=== PATIENT | female | born 2000 | race American Indian/Alaskan Native ===

== ENCOUNTER 2020-04-27 19:53 | Emergency (ER) | payer MEDICAID ==
[2020-04-27 22:30] VITALS: BP 117/71
[2020-04-27 23:13] LABS: Basophils % (Auto) 0.2 % (0.0-1.8); Eosinophils # (Auto) 0.1 K/mm3 (0.0-0.4); Eosinophils % (Auto) 0.8 % (0.0-4.3); Hematocrit 38.2 % (30.3-42.9); Hemoglobin 12.7 gm/dl (10.1-14.3); Lymphocytes # (Auto) 4.5 K/mm3 (1.2-5.4); Lymphocytes % (Auto) 39.6 % (13.4-35.0); Mean Corpuscular HGB Conc 33 % (30-34); Mean Corpuscular Volume 81 fl (79-97); Monocytes # (Auto) 0.6 K/mm3 (0.0-0.8); Monocytes % (Auto) 5.6 % (0.0-7.3); Platelet Count 309 K/mm3 (140-440); Red Cell Distribution Width 14.8 % (13.2-15.2)
[2020-04-27 23:30] LABS: Bacteria,Urine 1+ /HPF (Negative); Bilirubin,Urine NEG (Negative); Blood,Urine NEG (Negative); Color,Urine Yellow (Yellow); Hyaline Casts,Urine 2 /LPF; Mucus,Urine FEW /HPF; Protein,Urine <15 mg/dL mg/dL (Negative); Urobilinogen,Urine < 2.0 mg/dL (<2.0)
[2020-04-27 23:34] LABS: Alanine Aminotransferase 31 units/L (7-56); Albumin 4.3 g/dL (3.9-5); Blood Urea Nitrogen 11 mg/dL (7-17); Calcium 9.6 mg/dL (8.4-10.2); Hemolysis Index 3
[2020-04-27 23:57] LABS: BUN/Creatinine Ratio 16
== END 2020-04-28 07:58 | disposition left against medical advice (07) ==
LOC: ED 19:53
DX: R55 Syncope and collapse (principal); Z53.21 Procedure and treatment not carried out due to patient leaving prior to being seen by health care provider
CPT/HCPCS: 36415; 80053; 81001; 82962; 84703; 85025; 93005

== ENCOUNTER 2020-06-17 18:27 | Emergency (ER) | payer MEDICAID | END 2020-06-17 19:00 | disposition left against medical advice (07) | LOC: ED 18:27 | DX: R11.2 Nausea with vomiting, unspecified (principal); Z53.21 Procedure and treatment not carried out due to patient leaving prior to being seen by health care provider ==

== ENCOUNTER 2020-06-30 12:28 | Emergency (ER) | payer MEDICAID ==
--- NOTE | 2020-06-30 12:55 | Emergency Department Report ---
Blank Doc - Documentation Documentation: 19-year-old female that presents with worsening abdominal pain with n/v. Stated seen her PCP a few weeks ago and referred to GI but was not able to see one yet. 1- This initial assessment/diagnostic orders/clinical plan/ treatment(s) is/are subject to change based on pt's health status, clinical progression and re- assessment by fellow clinical providers in the ED. Further treatment and workup at subsequent clinical provers discretion. Patient/guardians urged not to elope from ED as their condition may be serious if not clinically assessed and managed. 2-labs 3-UA
[2020-06-30 14:06] LABS: Bilirubin,Urine NEG (Negative); Blood,Urine NEG (Negative); Color,Urine Yellow (Yellow); Mucus,Urine FEW /HPF; Protein,Urine <15 mg/dL mg/dL (Negative)
[2020-06-30 14:13] LABS: Basophils % (Auto) 0.3 % (0.0-1.8); Eosinophils % (Auto) 0.5 % (0.0-4.3); Hematocrit 41.9 % (30.3-42.9); Hemoglobin 13.8 gm/dl (10.1-14.3); Lymphocytes # (Auto) 2.9 K/mm3 (1.2-5.4); Lymphocytes % (Auto) 43.2 % (13.4-35.0); Mean Corpuscular HGB Conc 33 % (30-34); Mean Corpuscular Volume 83 fl (79-97); Monocytes # (Auto) 0.3 K/mm3 (0.0-0.8); Platelet Count 274 K/mm3 (140-440); Red Blood Count 5.02 M/mm3 (3.65-5.03); Red Cell Distribution Width 15.4 % (13.2-15.2)
[2020-06-30 14:38] LABS: Alanine Aminotransferase 25 units/L (7-56); Albumin 4.3 g/dL (3.9-5); Blood Urea Nitrogen 8 mg/dL (7-17); Calcium 9.4 mg/dL (8.4-10.2); Hemolysis Index 6
[2020-06-30 14:40] LABS: BUN/Creatinine Ratio 11
[2020-06-30] MEDS ORDERED: ONDANSETRON 4 MG/2 ML INJ IV ONE (16:47)
[2020-06-30] MEDS ORDERED: SODIUM CHLORIDE 0.9% 1000 ML 1,000 ML IV ONE (16:47)
--- NOTE | 2020-06-30 16:58 | Emergency Department Report ---
ED Abdominal Pain HPI - General Chief Complaint: Abdominal Pain Stated Complaint: ABD PAIN/VOMITING PUI?: No Time Seen by Provider: 06/30/20 16:28 Source: patient Mode of arrival: Ambulatory Limitations: No Limitations - History of Present Illness Initial Comments: Patient is a 19-year-old female that presents emergency room with complaint with abdominal pain and nausea vomiting. Patient states her symptoms been going on for 2 weeks. Patient states the symptoms are worsening. Patient states she saw her PCP yesterday and they referred her to gastroenterology. Patient states the pain is a stabbing pain. Patient states that she has a control in her left upper extremity and she has had a period for 6 weeks. Patient states the pain is a 10 out of 10. Patient denies recent travel. Patient denies recent international travel. Patient denies exposure to the novel coronavirus. Patient denies sick contacts. Patient denies fever and chills. Patient denies cough. Patient denies diarrhea. Patient denies coming in contact with anybody with symptoms of the novel coronavirus. MD Complaint: abdominal pain -: Sudden Location: RLQ, epigastric Radiation: none Migration to: no migration Severity: severe Severity scale (0 -10): 10 Quality: stabbing, sharp Consistency: constant Improves With: rest Worsens With: vomiting, movement Associated Symptoms: denies other symptoms, nausea, vomiting, constipation. de nies: diarrhea, fever, chills, dysuria, hematemesis, hematochezia, melena, hematuria, anorexia, syncope - Related Data LMP (females 10-50): other ( control implant in E. lmp 6 months.) Previous Rx's Medication Instructions Recorded Last Taken Type Hyoscyamine Subl [Levsin Sl 0.125 0.125 mg SL Q6HR PRN #7 tab 06/30/20 Unknown Rx TAB] Ondansetron [Zofran ODT TAB] 4 mg PO Q6HR PRN #20 tab.rapdis 06/30/20 Unknown Rx Allergies Allergy/AdvReac Type Severity Reaction Status Date / Time No Known Allergies Allergy Verified 12/11/19 18:32 ED Review of Systems ROS: Stated complaint: ABD PAIN/VOMITING Other details as noted in HPI Constitutional: denies: chills, fever Eyes: denies: eye pain, eye discharge, vision change ENT: denies: ear pain, throat pain Respiratory: denies: cough, shortness of breath, wheezing Cardiovascular: denies: chest pain, palpitations Endocrine: no symptoms reported Gastrointestinal: abdominal pain, nausea, vomiting, constipation. denies: diarrhea Genitourinary: denies: urgency, dysuria, discharge Musculoskeletal: denies: back pain, joint swelling, arthralgia Skin: denies: rash, lesions Neurological: denies: headache, weakness, paresthesias Psychiatric: denies: anxiety, depression Hematological/Lymphatic: denies: easy bleeding, easy bruising ED Past Medical Hx - Past Medical History Previous Medical History?: Yes Hx Diabetes: Yes - Social History Smoking Status: Current Every Day Smoker Substance Use Type: None - Medications Home Medications: Home Medications Medication Instructions Recorded Confirmed Last Taken Type Hyoscyamine Subl [Levsin Sl 0.125 0.125 mg SL Q6HR PRN #7 tab 06/30/20 Unknown Rx TAB] Ondansetron [Zofran ODT TAB] 4 mg PO Q6HR PRN #20 tab.rapdis 06/30/20 Unknown Rx ED Physical Exam - General Limitations: No Limitations General appearance: alert, in no apparent distress - Head Head exam: Present: atraumatic, normocephalic - Eye Eye exam: Present: normal appearance - ENT ENT exam: Present: mucous membranes moist - Neck Neck exam: Present: normal inspection - Respiratory Respiratory exam: Present: normal lung sounds bilaterally. Absent: respiratory distress - Cardiovascular Cardiovascular Exam: Present: regular rate, normal rhythm. Absent: systolic murmur, diastolic murmur, rubs, gallop - GI/Abdominal GI/Abdominal exam: Present: soft, tenderness (epigastric ttp and rlq ttp.), normal bowel sounds. Absent: distended, guarding - Rectal Rectal exam: Present: deferred - Extremities Exam Extremities exam: Present: normal inspection - Back Exam Back exam: Present: normal inspection - Neurological Exam Neurological exam: Present: alert, oriented X3 - Psychiatric Psychiatric exam: Present: normal affect, normal mood - Skin Skin exam: Present: warm, dry, intact, normal color. Absent: rash ED Course Vital Signs 06/30/20 06/30/20 06/30/20 12:36 12:43 18:13 Temperature 98.4 F Pulse Rate 99 H 80 Respiratory 18 Rate Blood Pressure 126/70 Blood Pressure 119/71 [Left] O2 Sat by Pulse 95 100 Oximetry - Reevaluation(s) Reevaluation #1: I discussed results of CT scan. Patient states he is feeling better after medications. Patient will be given a p.o. challenge. 06/30/20 18:45 Reevaluation #2: Patient tolerated p.o. challenge. Patient states she is feeling much better. Patient tolerating solid food and liquids. I discussed all results and clinical findings with patient. I discussed plan of care with patient. Patient agrees with plan of care. Patient is stable for discharge. Patient will be discharged home. Patient given discharge instructions. Patient voiced understanding of discharge instructions. 06/30/20 19:10 ED Medical Decision Making - Lab Data Result diagrams: 06/30/20 13:50 06/30/20 13:50 - Radiology Data CT OF THE ABDOMEN AND PELVIS WITH INTRAVENOUS CONTRAST INDICATION / CLINICAL INFORMATION: Abdominal and right lower quadrant pain. TECHNIQUE: The patient received 100 cc Omnipaque [address] scans at this location are performed using CT dose reduction for ALARA by means of automated exposure control. COMPARISON: None available. FINDINGS: ABDOMEN: The liver, spleen, gallbladder, bile ducts, pancreas, adrenal glands, kidneys and bowel demonstrate no significant abnormality. No adenopathy is seen. The lung bases are clear. PELVIS: The distal ureters and urinary bladder are normal. The uterus and adnexal regions are unremarkable. No abnormal mass or fluid collection is seen. A normal appendix is present and there is no evidence of diverticulitis. I do not identify a hernia. No acute osseous abnormality is seen. IMPRESSION: No acute abnormality is identified. There is no CT evidence of acute appendicitis. - Medical Decision Making Patient is a 19-year-old female that presents emergency room for abdominal pain and nausea and vomiting. Patient also complained of constipation at times. Patient on exam had right lower quadrant tenderness to palpation. Patient had l abs which were essentially unremarkable except for elevated specific gravity consistent with dehydration. Patient given fluids and Zofran. Patient responded well to treatment. Patient tolerated p.o. challenge. Patient had a CT scan since the patient had right lower quadrant abdominal pain and nausea and vomiting. Patient CT scan was negative for acute findings. Patient stable for discharge. Patient discharged home. - Differential Diagnosis Gastroenteritis, gastroparesis, appendicitis, dehydration, abdominal pain Critical care attestation.: If time is entered above; I have spent that time in minutes in the direct care of this critically ill patient, excluding procedure time. ED Disposition Clinical Impression: Gastroenteritis Abdominal pain Qualifiers: Abdominal location: right lower quadrant Qualified Code(s): R10.31 - Right lower quadrant pain Constipation Qualifiers: Constipation type: unspecified constipation type Qualified Code(s): K59.00 - Constipation, unspecified Nausea & vomiting Qualifiers: Vomiting type: unspecified Vomiting Intractability: non-intractable Qualified Code(s): R11.2 - Nausea with vomiting, unspecified Disposition: TO HOME OR SELFCARE Is pt being admited?: No Does the pt Need Aspirin: No Condition: Stable Instructions: Abdominal Pain (ED), Constipation, Adult, [id number], Abdominal Pain, Adult, Viral Gastroenteritis, Adult, Nausea and Vomiting, Adult Additional Instructions: Patient to follow-up with primary care in 2 to 3 days. Patient to follow-up with gastroenterology in 2 to 3 days. Patient to rest. Patient to increase wa ter. Patient to eat a brat diet. Patient to take Tylenol or ibuprofen as needed for pain. Patient to take meds as directed. Patient to return to the ER if condition worsens, changes or new symptoms arise. Prescriptions: Hyoscyamine Subl [Levsin Sl 0.125 TAB] 0.125 mg SL Q6HR PRN #7 tab PRN Reason: abdominal cramping/diarrhea Ondansetron [Zofran ODT TAB] 4 mg PO Q6HR PRN #20 tab.rapdis PRN Reason: Nausea And Vomiting Referrals: PRIMARY CARE, [Primary Care Provider] - 2-3 Days ELENI MORA MD [Staff Physician] - 2-3 Days Time of Disposition: 19:16
--- NOTE | 2020-06-30 17:56 | Cat Scan Report ---
CT OF THE ABDOMEN AND PELVIS WITH INTRAVENOUS CONTRAST INDICATION / CLINICAL INFORMATION: Abdominal and right lower quadrant pain. TECHNIQUE: The patient received 100 cc Omnipaque [address] scans at this location are performed using CT dose reduction for ALARA by means of automated exposure control. COMPARISON: None available. FINDINGS: ABDOMEN: The liver, spleen, gallbladder, bile ducts, pancreas, adrenal glands, kidneys and bowel demo nstrate no significant abnormality. No adenopathy is seen. The lung bases are clear. PELVIS: The distal ureters and urinary bladder are normal. The uterus and adnexal regions are unremar kable. No abnormal mass or fluid collection is seen. A normal appendix is present and there is no iram dence of diverticulitis. I do not identify a hernia. No acute osseous abnormality is seen. IMPRESSION: No acute abnormality is identified. There is no CT evidence of acute appendicitis. Signer Name: Ebenezer Gamboa MD Signed: 06/30/2020 5:52 PM Workstation Name: [id number]
[2020-06-30 18:13] VITALS: BP 119/71
== END 2020-06-30 19:24 | disposition home or self-care (01) ==
LOC: ED 12:28
DX: K52.9 Noninfective gastroenteritis and colitis, unspecified (principal); K59.00 Constipation, unspecified; R11.2 Nausea with vomiting, unspecified; R10.31 Right lower quadrant pain; E11.9 Type 2 diabetes mellitus without complications; F17.200 Nicotine dependence, unspecified, uncomplicated; Z79.899 Other long term (current) drug therapy
CPT/HCPCS: 36415; 74177; 80053; 81001; 82962; 83690; 84703; 85025; 96361; 96374; 99284; J2405; J7030; Q9967

== ENCOUNTER 2020-08-23 19:04 | Emergency (ER) | payer MEDICAID ==
[2020-08-23 21:31] VITALS: BP 145/84
[2020-08-23] MEDS ORDERED: ONDANSETRON 4 MG ODT TAB PO ONE (23:57)
[2020-08-23] MEDS ORDERED: ACETAMINOPHEN 500 MG TAB PO ONE (23:58)
[2020-08-23] MEDS ORDERED: MECLIZINE 25 MG TAB PO ONE (23:58)
[2020-08-24 00:40] LABS: Hematocrit 40.6 % (30.3-42.9); Hemoglobin 13.4 gm/dl (10.1-14.3); Mean Corpuscular HGB Conc 33 % (30-34); Mean Corpuscular Volume 85 fl (79-97); Platelet Count 316 K/mm3 (140-440); Red Cell Distribution Width 15.1 % (13.2-15.2)
[2020-08-24 00:42] LABS: Lymphocytes % (Auto) 41.2 % (13.4-35.0)
[2020-08-24 00:43] LABS: Basophils % (Auto) 0.2 % (0.0-1.8); Eosinophils # (Auto) 0.1 K/mm3 (0.0-0.4); Eosinophils % (Auto) 0.6 % (0.0-4.3); Lymphocytes # (Auto) 4.7 K/mm3 (1.2-5.4); Monocytes # (Auto) 0.8 K/mm3 (0.0-0.8); Monocytes % (Auto) 6.7 % (0.0-7.3)
[2020-08-24 02:11] LABS: Alanine Aminotransferase 21 units/L (7-56); Albumin 4.6 g/dL (3.9-5); BUN/Creatinine Ratio 8; Blood Urea Nitrogen 8 mg/dL (7-17); Calcium 10.2 mg/dL (8.4-10.2); Hemolysis Index 2
--- NOTE | 2020-08-24 02:41 | XRay Report ---
CHEST 1 VIEW 08/24/2020 1:35 AM INDICATION / CLINICAL INFORMATION: Headaches, weakness, lightheadedness and near syncope. COMPARISON: None available. FINDINGS: SUPPORT DEVICES: None. HEART / MEDIASTINUM: The heart size and pulmonary vasculature are normal. The aorta is normal in nico alistair. LUNGS / PLEURA: No significant pulmonary or pleural abnormality. No pneumothorax. ADDITIONAL FINDINGS: No significant additional findings. IMPRESSION: No acute findings. Signer Name: Ebenezer Gamboa MD Signed: 08/24/2020 2:37 AM Workstation Name: [id number]
[2020-08-24 05:33] LABS: Bilirubin,Urine NEG (Negative); Blood,Urine NEG (Negative); Color,Urine Amber (Yellow); Mucus,Urine 3+ /HPF; Urobilinogen,Urine < 2.0 mg/dL (<2.0)
--- NOTE | 2020-08-24 06:01 | Emergency Department Report ---
ED General Adult HPI - General Chief complaint: Weakness Stated complaint: WEAKNESS/HEADACHE Source: patient, EMS Mode of arrival: Ambulatory Limitations: No Limitations - History of Present Illness Initial comments: Patient is a nulliparous 19-year-old -[place] female with past medical history of bipolar disorder, paranoid schizophrenia and fti-eskayaa-zuxuarzqj diabetes who presents to the ED with complaint of acute onset persistent frontal headache with pressure, lightheadedness and generalized weakness for the last 2 days. Patient states that the symptoms have worsened in the last 12 hours. Patient states that she has been taking ofyj-dbp-xdsphmj medications with no relief. Patient denies nausea and vomiting, diarrhea, dizziness, syncope, chest pain or shortness of breath, sore throat, abdominal pain, dysuria, urinary frequency and urgency, fever and chills or cough. MD Complaint: Headache, lightheadedness generalized weakness -: Sudden, days(s) (2) Location: head Radiation: non-radiation Severity scale (0 -10): 3 Quality: aching, sharp Consistency: constant Improves with: none Worsens with: none Associated Symptoms: denies other symptoms, headaches, weakness. denies: confusion, chest pain, cough, diaphoresis, fever/chills, loss of appetite, malaise, nausea/vomiting, rash, seizure, shortness of breath, syncope Treatments Prior to Arrival: none - Related Data Previous Rx's Medication Instructions Recorded Last Taken Type Hyoscyamine Subl [Levsin Sl 0.125 0.125 mg SL Q6HR PRN #7 tab 06/30/20 Unknown Rx TAB] Ondansetron [Zofran ODT TAB] 4 mg PO Q6HR PRN #20 tab.rapdis 06/30/20 Unknown Rx Amoxicillin [Trimox CAP] 500 mg PO Q8H #30 capsule 08/24/20 Unknown Rx Ibuprofen [Motrin] 600 mg PO Q8H PRN #24 tablet 08/24/20 Unknown Rx Ondansetron [Zofran Odt] 4 mg PO Q8HR PRN #15 tab.rapdis 08/24/20 Unknown Rx Allergies Allergy/AdvReac Type Severity Reaction Status Date / Time No Known Allergies Allergy Verified 12/11/19 18:32 ED Review of Systems ROS: Stated complaint: WEAKNESS/HEADACHE Other details as noted in HPI Constitutional: denies: chills, fever Eyes: denies: eye pain, eye discharge, vision change ENT: other (Frontal sinus pressure). denies: ear pain, throat pain Respiratory: denies: cough, shortness of breath, wheezing Cardiovascular: denies: chest pain, palpitations Endocrine: no symptoms reported Gastrointestinal: denies: abdominal pain, nausea, diarrhea Genitourinary: denies: urgency, dysuria, discharge Musculoskeletal: denies: back pain, joint swelling, arthralgia Skin: denies: rash, lesions Neurological: headache. denies: weakness, paresthesias Psychiatric: denies: anxiety, depression Hematological/Lymphatic: denies: easy bleeding, easy bruising ED Past Medical Hx - Past Medical History Previous Medical History?: Yes Hx Diabetes: Yes Hx Psychiatric Treatment: Yes (bipolar,schizophrenia) - Social History Smoking Status: Never Smoker Substance Use Type: None - Medications Home Medications: Home Medications Medication Instructions Recorded Confirmed Last Taken Type Hyoscyamine Subl [Levsin Sl 0.125 0.125 mg SL Q6HR PRN #7 tab 06/30/20 Unknown Rx TAB] Ondansetron [Zofran ODT TAB] 4 mg PO Q6HR PRN #20 tab.rapdis 06/30/20 Unknown Rx Amoxicillin [Trimox CAP] 500 mg PO Q8H #30 capsule 08/24/20 Unknown Rx Ibuprofen [Motrin] 600 mg PO Q8H PRN #24 tablet 08/24/20 Unknown Rx Ondansetron [Zofran Odt] 4 mg PO Q8HR PRN #15 tab.rapdis 08/24/20 Unknown Rx ED Physical Exam - General Limitations: No Limitations General appearance: alert, in no apparent distress - Head Head exam: Present: atraumatic, normocephalic, normal inspection - Eye Eye exam: Present: normal appearance, PERRL, EOMI Pupils: Present: normal accommodation - ENT ENT exam: Present: normal exam, normal orophraynx, mucous membranes moist, TM's normal bilaterally, normal external ear exam, other (Palpable frontal sinus tenderness) - Neck Neck exam: Present: normal inspection, full ROM - Respiratory Respiratory exam: Present: normal lung sounds bilaterally. Absent: respiratory distress, wheezes, rales, rhonchi, chest wall tenderness, accessory muscle use, decreased breath sounds, other - Cardiovascular Cardiovascular Exam: Present: regular rate, normal rhythm, normal heart sounds. Absent: systolic murmur, diastolic murmur, rubs, gallop - GI/Abdominal GI/Abdominal exam: Present: soft, normal bowel sounds. Absent: tenderness, guarding, rebound, hyperactive bowel sounds, hypoactive bowel sounds - Extremities Exam Extremities exam: Present: normal inspection, full ROM, normal capillary refill - Back Exam Back exam: Present: normal inspection, full ROM. Absent: tenderness, CVA tenderness (R), CVA tenderness (L), muscle spasm, paraspinal tenderness - Neurological Exam Neurological exam: Present: alert, oriented X3, CN II-XII intact, normal gait, reflexes normal - Psychiatric Psychiatric exam: Present: normal affect, normal mood, anxious - Skin Skin exam: Present: warm, dry, intact, normal color. Absent: rash ED Course Vital Signs 08/23/20 21:26 Temperature 98.9 F Pulse Rate 97 H Respiratory 18 Rate Blood Pressure 145/84 O2 Sat by Pulse 98 Oximetry ED Medical Decision Making - Lab Data Result diagrams: 08/24/20 00:05 08/24/20 00:05 - Radiology Data Radiology results: report reviewed, image reviewed [facility] [address] [place] [address] XRay Report Signed Patient: SONIA COREAS MR#: [id number] 6 : 2000 Acct:[id number] Age/Sex: 19 / F ADM Date: 08/23/20 Loc: ED Attending Dr: Ordering Physician: SCAR TOWNSEND Date of Service: 08/24/20 Procedure(s): XR chest 1V ap Accession Number(s): [id number] cc: SCAR TOWNSEND Fluoro Time In Minutes: CHEST 1 VIEW 08/24/2020 1:35 AM INDICATION / CLINICAL INFORMATION: Headaches, weakness, lightheadedness and near syncope. COMPARISON: None available. FINDINGS: SUPPORT DEVICES: None. HEART / MEDIASTINUM: The heart size and pulmonary vasculature are normal. The aorta is normal in caliber. LUNGS / PLEURA: No significant pulmonary or pleural abnormality. No pneumothorax. ADDITIONAL FINDINGS: No significant additional findings. IMPRESSION: No acute findings. Signer Name: Ebenezer Gamboa MD Signed: 08/24/2020 2:37 AM Workstation Name: [id number] Transcribed By: RT Dictated By: Ebenezer Gamboa MD Electronically Authenticated By: Ebenezer Gamboa MD Signed Date/Time: 08/24/20236 DD/ 5 TD/TT: Print Cancel - Medical Decision Making This is a nulliparous 19-year-old -[place] female with past medical hist ory of bipolar disorder, paranoid schizophrenia and rgk-uehxktm-doomahkwk diabetes who presents to the ED with complaint of acute onset persistent frontal headache with pressure, lightheadedness and generalized weakness for the last 2 days. Patient states that the symptoms have worsened in the last 12 hours. Patient states that she has been taking asry-zur-knrvtkb medications with no relief. In the ED, patient is alert and oriented x3 and is not in any distress with stable vital signs. In the ED, patient was treated for pain and also given antiemetics. Chest x-ray showed no acute cardiopulmonary abnormalities or pneumonitis. Lab test results were reviewed and are all nonactionable. Based on the history and physical exam findings, the patient symptoms are likely due to frontal sinusitis. Patient was therefore discharged home on medications and advised to follow-up with her primary care physician in 7 to 10 days for reevaluation or return to the ED immediately if symptoms get worse. - Differential Diagnosis Sinus headache, sinusitis, URI, viral syndrome, dehydration Critical care attestation.: If time is entered above; I have spent that time in minutes in the direct care of this critically ill patient, excluding procedure time. ED Disposition Clinical Impression: Acute non-recurrent frontal sinusitis, Sinus headache Disposition: - TO HOME OR SELFCARE Is pt being admited?: No Does the pt Need Aspirin: No Condition: Stable Instructions: Sinusitis, Adult, Spjf-zf-Yeqo, Upper Respiratory Infection, Adult, Cowm-wy-Olha, Sinus Headache, Nlpd-nl-Retf Additional Instructions: All lab test results were reviewed and are all nonactionable. Chest x-ray showed no acute cardiopulmonary abnormalities or pneumonitis. Therefore take medications with food drink plenty of fluids and follow-up with your primary care physician in 5 to 7 days for reevaluation. Return to the ED immediately if symptoms get worse. Prescriptions: Ibuprofen [Motrin] 600 mg PO Q8H PRN #24 tablet PRN Reason: Pain Amoxicillin [Trimox CAP] 500 mg PO Q8H #30 capsule Ondansetron [Zofran Odt] 4 mg PO Q8HR PRN #15 tab.rapdis PRN Reason: Nausea Referrals: [facility] [Provider Group] - 7-10 days Time of Disposition: 06:02 Print Language: EMIRATI
== END 2020-08-24 06:10 | disposition home or self-care (01) ==
LOC: ED 19:04
DX: J01.10 Acute frontal sinusitis, unspecified (principal); R51.9 Headache, unspecified; E11.9 Type 2 diabetes mellitus without complications; F20.9 Schizophrenia, unspecified; F31.9 Bipolar disorder, unspecified; Z79.1 Long term (current) use of non-steroidal anti-inflammatories (NSAID); Z79.2 Long term (current) use of antibiotics; Z79.899 Other long term (current) drug therapy
CPT/HCPCS: 36415; 71045; 80053; 81001; 82962; 84703; 85025; 87086; Q0162

== ENCOUNTER 2020-09-01 20:47 | Inpatient (IN) | payer MEDICAID ==
[2020-09-01 21:34] LABS: Basophils % (Auto) 0.3 % (0.0-1.8); Eosinophils # (Auto) 0.1 K/mm3 (0.0-0.4); Eosinophils % (Auto) 0.6 % (0.0-4.3); Hematocrit 37.7 % (30.3-42.9); Hemoglobin 12.5 gm/dl (10.1-14.3); Lymphocytes # (Auto) 3.2 K/mm3 (1.2-5.4); Lymphocytes % (Auto) 34.2 % (13.4-35.0); Mean Corpuscular HGB Conc 33 % (30-34); Mean Corpuscular Volume 84 fl (79-97); Monocytes # (Auto) 0.5 K/mm3 (0.0-0.8); Monocytes % (Auto) 5.4 % (0.0-7.3); Platelet Count 261 K/mm3 (140-440); Red Blood Count 4.52 M/mm3 (3.65-5.03); Red Cell Distribution Width 14.7 % (13.2-15.2)
[2020-09-01 21:59] LABS: Alanine Aminotransferase 22 units/L (7-56); Albumin 3.8 g/dL (3.9-5); BUN/Creatinine Ratio 14; Blood Urea Nitrogen 11 mg/dL (7-17); Calcium 8.9 mg/dL (8.4-10.2); Hemolysis Index 5
[2020-09-01 23:01] LABS: INR 1.19 (0.87-1.13)
[2020-09-01 23:02] LABS: Partial Thromboplastin Time 30.3 Sec. (24.2-36.6)
--- NOTE | 2020-09-01 23:05 | Emergency Department Report ---
ED General Adult HPI - General Chief complaint: Overdose Stated complaint: POSS OD Time Seen by Provider: 09/01/20 21:01 Source: patient, EMS Mode of arrival: Stretcher Limitations: No Limitations - History of Present Illness Initial comments: The patient presents to the emergency department via EMS after taking 3 handfuls of Tylenol. Patient states able to 500 mg tablets. The Tylenol was taken around 8 PM and was witnessed by her roommate. Patient states that she has a history of schizophrenia with suicide attempts in the past with the last one being 2 weeks ago. She says she has a self-harm who likes to cut her wrists. She states today voices were telling her to hurt himself and others by slicing her throat. She states this overwhelmed her so she ran to the home to grab a sharp item to slice her self but she cannot find it so instead she took the Tylenol. -: Sudden Severity scale (0 -10): 0 Consistency: constant Improves with: none Worsens with: none Associated Symptoms: denies other symptoms Treatments Prior to Arrival: none - Related Data Previous Rx's Medication Instructions Recorded Last Taken Type Hyoscyamine Subl [Levsin Sl 0.125 0.125 mg SL Q6HR PRN #7 tab 06/30/20 Unknown Rx TAB] Ondansetron [Zofran ODT TAB] 4 mg PO Q6HR PRN #20 tab.rapdis 06/30/20 Unknown Rx Amoxicillin [Trimox CAP] 500 mg PO Q8H #30 capsule 08/24/20 Unknown Rx Ibuprofen [Motrin] 600 mg PO Q8H PRN #24 tablet 08/24/20 Unknown Rx Ondansetron [Zofran Odt] 4 mg PO Q8HR PRN #15 tab.rapdis 08/24/20 Unknown Rx Allergies Allergy/AdvReac Type Severity Reaction Status Date / Time No Known Allergies Allergy Verified 12/11/19 18:32 ED Review of Systems ROS: Stated complaint: POSS OD Other details as noted in HPI Constitutional: denies: chills, fever Eyes: denies: eye pain, eye discharge, vision change ENT: denies: ear pain, throat pain Respiratory: denies: cough, shortness of breath, wheezing Cardiovascular: denies: chest pain, palpitations Endocrine: no symptoms reported Gastrointestinal: denies: abdominal pain, nausea, diarrhea Genitourinary: denies: urgency, dysuria, discharge Musculoskeletal: denies: back pain, joint swelling, arthralgia Skin: denies: rash, lesions Neurological: denies: headache, weakness, paresthesias Psychiatric: auditory hallucinations, suicidal thoughts. denies: anxiety, depression, visual hallucinations, homicidal thoughts Hematological/Lymphatic: denies: easy bleeding, easy bruising ED Past Medical Hx - Past Medical History Hx Diabetes: Yes Hx Psychiatric Treatment: Yes (bipolar,schizophrenia) - Social History Smoking Status: Never Smoker - Medications Home Medications: Home Medications Medication Instructions Recorded Confirmed Last Taken Type Hyoscyamine Subl [Levsin Sl 0.125 0.125 mg SL Q6HR PRN #7 tab 06/30/20 Unknown Rx TAB] Ondansetron [Zofran ODT TAB] 4 mg PO Q6HR PRN #20 tab.rapdis 06/30/20 Unknown Rx Amoxicillin [Trimox CAP] 500 mg PO Q8H #30 capsule 08/24/20 Unknown Rx Ibuprofen [Motrin] 600 mg PO Q8H PRN #24 tablet 08/24/20 Unknown Rx Ondansetron [Zofran Odt] 4 mg PO Q8HR PRN #15 tab.rapdis 08/24/20 Unknown Rx ED Physical Exam - General Limitations: No Limitations General appearance: alert, in no apparent distress - Head Head exam: Present: atraumatic, normocephalic - Eye Eye exam: Present: normal appearance, PERRL, EOMI - ENT ENT exam: Present: mucous membranes moist - Neck Neck exam: Present: normal inspection - Respiratory Respiratory exam: Present: normal lung sounds bilaterally. Absent: respiratory distress - Cardiovascular Cardiovascular Exam: Present: regular rate, normal rhythm. Absent: systolic mur mur, diastolic murmur, rubs, gallop - GI/Abdominal GI/Abdominal exam: Present: soft, normal bowel sounds. Absent: distended, tenderness - Extremities Exam Extremities exam: Present: normal inspection - Back Exam Back exam: Present: normal inspection - Neurological Exam Neurological exam: Present: alert, oriented X3 - Psychiatric Psychiatric exam: Present: normal affect, normal mood, suicidal ideation. Absent: homicidal ideation - Skin Skin exam: Present: warm, dry, intact, normal color. Absent: rash ED Course Vital Signs 09/01/20 09/01/20 09/01/20 21:31 21:51 22:00 Temperature 98.6 F Pulse Rate 88 83 80 Respiratory 19 18 11 L Rate Blood Pressure 106/59 106/59 108/56 O2 Sat by Pulse 99 99 99 Oximetry 09/01/20 09/01/20 09/01/20 22:15 22:31 22:45 Temperature Pulse Rate 82 87 81 Respiratory 14 15 14 Rate Blood Pressure 108/56 121/72 121/72 O2 Sat by Pulse 98 98 98 Oximetry 09/01/20 09/01/20 09/01/20 23:01 23:15 23:31 Temperature Pulse Rate 79 84 87 Respiratory 13 13 14 Rate Blood Pressure 127/75 127/75 117/67 O2 Sat by Pulse 98 98 98 Oximetry 09/01/20 09/02/20 09/02/20 23:45 00:01 00:15 Temperature Pulse Rate 80 83 81 Respiratory 14 13 12 Rate Blood Pressure 117/67 123/70 123/70 O2 Sat by Pulse 97 99 98 Oximetry 09/02/20 09/02/20 09/02/20 00:31 00:45 01:01 Temperature Pulse Rate 82 87 85 Respiratory 13 13 14 Rate Blood Pressure 117/62 117/62 130/68 O2 Sat by Pulse 97 97 96 Oximetry ED Medical Decision Making - Lab Data Result diagrams: 09/01/20 21:20 09/01/20 21:20 Lab Results 09/01/20 09/01/20 09/01/20 Range/Units 21:20 21:20 21:20 WBC 9.4 (4.5-11.0) K/mm3 RBC 4.52 (3.65-5.03) M/mm3 Hgb 12.5 (10.1-14.3) gm/dl Hct 37.7 (30.3-42.9) % MCV 84 (79-97) fl MCH 28 (28-32) pg MCHC 33 (30-34) % RDW 14.7 (13.2-15.2) % Plt Count 261 (140-440) K/mm3 Lymph % (Auto) 34.2 (13.4-35.0) % Christian % (Auto) 5.4 (0.0-7.3) % Eos % (Auto) 0.6 (0.0-4.3) % Baso % (Auto) 0.3 (0.0-1.8) % Lymph # (Auto) 3.2 (1.2-5.4) K/mm3 Christian # (Auto) 0.5 (0.0-0.8) K/mm3 Eos # (Auto) 0.1 (0.0-0.4) K/mm3 Baso # (Auto) 0.0 (0.0-0.1) K/mm3 Seg Neutrophils % 59.5 (40.0-70.0) % Seg Neutrophils # 5.6 (1.8-7.7) K/mm3 PT (12.2-14.9) Sec. INR (0.87-1.13) APTT (24.2-36.6) Sec. Sodium (137-145) mmol/L Potassium (3.6-5.0) mmol/L Chloride (98-107) mmol/L Carbon Dioxide (22-30) mmol/L Anion Gap mmol/L BUN (7-17) mg/dL Creatinine (0.6-1.2) mg/dL Estimated GFR ml/min BUN/Creatinine Ratio % Glucose (65-100) mg/dL Calcium (8.4-10.2) mg/dL Total Bilirubin (0.1-1.2) mg/dL AST (5-40) units/L ALT (7-56) units/L Alkaline Phosphatase (35-129) units/L Total Protein (6.3-8.2) g/dL Albumin (3.9-5) g/dL Albumin/Globulin Ratio % HCG, Qual (Negative) Salicylates < 0.3 L (2.8-20.0) mg/dL Acetaminophen 6.1 L (10.0-30.0) ug/mL Plasma/Serum Alcohol (0-0.07) % 09/01/20 09/01/20 09/01/20 Range/Units 21:20 21:20 21:20 WBC (4.5-11.0) K/mm3 RBC (3.65-5.03) M/mm3 Hgb (10.1-14.3) gm/dl Hct (30.3-42.9) % MCV (79-97) fl MCH (28-32) pg MCHC (30-34) % RDW (13.2-15.2) % Plt Count (140-440) K/mm3 Lymph % (Auto) (13.4-35.0) % Christian % (Auto) (0.0-7.3) % Eos % (Auto) (0.0-4.3) % Baso % (Auto) (0.0-1.8) % Lymph # (Auto) (1.2-5.4) K/mm3 Christian # (Auto) (0.0-0.8) K/mm3 Eos # (Auto) (0.0-0.4) K/mm3 Baso # (Auto) (0.0-0.1) K/mm3 Seg Neutrophils % (40.0-70.0) % Seg Neutrophils # (1.8-7.7) K/mm3 PT (12.2-14.9) Sec. INR (0.87-1.13) APTT (24.2-36.6) Sec. Sodium 137 (137-145) mmol/L Potassium 4.0 (3.6-5.0) mmol/L Chloride 102.3 (98-107) mmol/L Carbon Dioxide 25 (22-30) mmol/L Anion Gap 14 mmol/L BUN 11 (7-17) mg/dL Creatinine 0.8 (0.6-1.2) mg/dL Estimated GFR > 60 ml/min BUN/Creatinine Ratio 14 % Glucose 115 H (65-100) mg/dL Calcium 8.9 (8.4-10.2) mg/dL Total Bilirubin 0.30 (0.1-1.2) mg/dL AST 24 (5-40) units/L ALT 22 (7-56) units/L Alkaline Phosphatase 107 (35-129) units/L Total Protein 7.9 (6.3-8.2) g/dL Albumin 3.8 L (3.9-5) g/dL Albumin/Globulin Ratio 0.9 % HCG, Qual Negative (Negative) Salicylates (2.8-20.0) mg/dL Acetaminophen (10.0-30.0) ug/mL Plasma/Serum Alcohol < 0.01 (0-0.07) % /09/17 Range/Units 22:38 WBC (4.5-11.0) K/mm3 RBC (3.65-5.03) M/mm3 Hgb (10.1-14.3) gm/dl Hct (30.3-42.9) % MCV (79-97) fl MCH (28-32) pg MCHC (30-34) % RDW (13.2-15.2) % Plt Count (140-440) K/mm3 Lymph % (Auto) (13.4-35.0) % Christian % (Auto) (0.0-7.3) % Eos % (Auto) (0.0-4.3) % Baso % (Auto) (0.0-1.8) % Lymph # (Auto) (1.2-5.4) K/mm3 Christian # (Auto) (0.0-0.8) K/mm3 Eos # (Auto) (0.0-0.4) K/mm3 Baso # (Auto) (0.0-0.1) K/mm3 Seg Neutrophils % (40.0-70.0) % Seg Neutrophils # (1.8-7.7) K/mm3 PT 15.1 H (12.2-14.9) Sec. INR 1.19 H (0.87-1.13) APTT 30.3 (24.2-36.6) Sec. Sodium (137-145) mmol/L Potassium (3.6-5.0) mmol/L Chloride (98-107) mmol/L Carbon Dioxide (22-30) mmol/L Anion Gap mmol/L BUN (7-17) mg/dL Creatinine (0.6-1.2) mg/dL Estimated GFR ml/min BUN/Creatinine Ratio % Glucose (65-100) mg/dL Calcium (8.4-10.2) mg/dL Total Bilirubin (0.1-1.2) mg/dL AST (5-40) units/L ALT (7-56) units/L Alkaline Phosphatase (35-129) units/L Total Protein (6.3-8.2) g/dL Albumin (3.9-5) g/dL Albumin/Globulin Ratio % HCG, Qual (Negative) Salicylates (2.8-20.0) mg/dL Acetaminophen (10.0-30.0) ug/mL Plasma/Serum Alcohol (0-0.07) % - Radiology Data Radiology results: report reviewed - Medical Decision Making 1013 applied ED hold applied Patient pending medical clearance Urinalysis needed for medical clearance Awaiting mental health evaluation and possible placement Repeat APAP level pending if normal the patient can be medically cleared because this will be 6 hours after ingestion of the Tylenol Critical care attestation.: If time is entered above; I have spent that time in minutes in the direct care of this critically ill patient, excluding procedure time. ED Disposition Clinical Impression: Suicide attempt, Drug ingestion Disposition: [id number]/[id number] PSY HOSP/PSY UNIT Is pt being admited?: No Does the pt Need Aspirin: No Condition: Stable Referrals: PRIMARY CARE, [Primary Care Provider] - 3-5 Days
--- NOTE | 2020-09-02 07:07 | Emergency Department Report ---
Blank Doc - Documentation Documentation: It was brought to my attention that the patient has had progressively increasing Tylenol/acetaminophen levels. The last acetaminophen level was 81.2 and was drawn at 5:38 AM this morning. With the ingestion time being witnessed at about 8 PM last night, and based on the Joao Al nomogram, this appears to be concerning for a toxic overdose and the need for treatment. I spoke with Carlos at poison control who agrees that the patient requires the Acetadote treatment. I spoke with the pharmacist and the orders have been placed for the loading dose followed by the transfusion of Acetadote. The patient will be admitted to the hospitalist service.
[2020-09-02] MEDS ORDERED: ACETADOTE (ACETYLCYSTEINE IV) 15,000 MG in DEXTROSE 5% IN WATER 200 ML IV ONE (08:00)
[2020-09-02] MEDS ORDERED: ACETADOTE(ACETYLCYSTEINE IV) 5,000 MG in DEXTROSE 5% IN WATER 500 ML IV ONE (09:00)
--- NOTE | 2020-09-02 09:03 | Consultation ---
History of Present Illness - Reason for Consult Consult date: 09/02/20 Reason for consult: MHE Requesting physician: TYRON VILLANUEVA - History of Present Psychiatric Illness Per ED Provider: The patient presents to the emergency department via EMS after taking 3 handfuls of Tylenol. Patient states able to 500 mg tablets. The Tylenol was taken around 8 PM and was witnessed by her roommate. Patient states that she has a history of schizophrenia with suicide attempts in the past with the last one being 2 weeks ago. She says she has a self-harm who likes to cut her wrists. She states today voices were telling her to hurt himself and others by slicing her throat. She states this overwhelmed her so she ran to the home to grab a sharp item to slice her self but she cannot find it so instead she took the Tylenol. PSYCH HPI Patient is a 19-year-old, single unemployed -Citizen Of [place] female who currently resides in a retirement with past psychiatric history of depression, bipolar, schizophrenia, anxiety and past medical history of diabetes mellitus who presented to the ED with chief complaint of overdose. Patient reports she did not attempt to overdose and kill herself, that she took the medication in the hopes of feeling better physically. Patient reports she has been physically sick having symptoms of nausea, dizziness, headaches, and vomiting for the past couple of weeks, was seen and evaluated by Dr. Nobles told her and reassured her that everything was fine but still she did not feel better. out her of desire to wanting to feel better she decided maybe if she takes more Tylenol pills that would stop her physical symptoms and she ended up here. She denies any suicidal thoughts, homicidal ideation, denies feeling depressed at the moment and states that she is only seeking medical treatment. PAST PSYCHIATRIC HISTORY Diagnoses: Depression, bipolar schizophrenia, anxiety Suicide attempts or Self-harm behavior: Yes Prior psychiatric hospitalizations: yes Substance Abuse history: none reported Previous psychiatric medications tried: yes but unknown Outpatient treatment: Therapist PAST MEDICAL HISTORY: Diabetes Family Psychiatric History: None reported or documented SOCIAL HISTORY Marital Status: Single Living Arrangements: skilled nursing Employment Status: unemployed Access to guns/weapons: none reported Education: 10th grade History of Abuse: none reported Legal History: none reported REVIEW OF SYSTEMS Constitutional: HAs, Negative for weight loss ENT: Negative for stridor Abdomen: Positve Nausae, vomit. Respiratory: Negative for cough or hemoptysis All other systems reviewed and are negative MENTAL STATUS EXAMINATION General Appearance and Behavior: Age appropriate, good hygiene, wearing appropriate clothes, good eye contact, cooperative polite with questioning. Cooperation: Participating/engaged Psychomotor Behavior: unremarkable and within normal limits Mood: Good Affect and affective range: congruent with mood Thought Process: Fluent/Logical, Thought Content: Within reality, Speech: Normal volume, Regular rate and rhythm, Intellectual Functioning: Average Suicidal Ideation: Denies SI Homicidal Ideation: Denies HI Impulse Control: Unimpaired Insight and Judgment: Normal insight and judgment, Memory: Normal, Attention: Normal, Orientation: Alert, oriented, Assessment and Plan - Psychiatric problem (1) Depression Current Visit: Yes Status: Acute Qualifiers: Psychotic features: without psychotic features F32.9 Treatment Plan MEDICATIONS: Risks, benefits and alternatives of medications discussed with the patient, questions answered and consent obtained from patient. PSYCHOTHERAPY: Supportive psychotherapy provided MEDICAL: Per primary team DELIRIUM PRECAUTIONS: Please re-orient patient frequently, keep lights on during the day, and minimize benzodiazepines and opiates as these medications could worsen patient's confusion. DATA QUALITY CONSULTANT: DISPOSITION: Do Not Recommend acute inpatient psychiatric hospitalization at this time. Case discussed with Dr. Salvador who agrees with current disposition LEGAL STATUS: 1013 rescinded FOLLOW-UP: Will sign off Thank you for the consult. Please contact with any questions and/or concerns. Medications and Allergies Allergies Allergy/AdvReac Type Severity Reaction Status Date / Time No Known Allergies Allergy Verified 12/11/19 18:32 Home Medications Medication Instructions Recorded Confirmed Last Taken Type FLUoxetine HCL [FLUoxetine] 60 mg PO QHS 09/02/20 09/02/20 Unknown History OLANZapine [Zyprexa Zydis] 20 mg PO QHS 09/02/20 09/02/20 Unknown History Simvastatin 10 mg PO QHS 09/02/20 09/02/20 Unknown History Ziprasidone HCl [Geodon] 80 mg PO QHS 09/02/20 09/02/20 Unknown History Ziprasidone [Geodon] 60 mg PO QAM 09/02/20 09/02/20 Unknown History hydrOXYzine PAMOATE [Vistaril] 25 mg PO QAM 09/02/20 09/02/20 Unknown History hydrOXYzine PAMOATE [Vistaril] 25 mg PO QHS 09/02/20 09/02/20 Unknown History Active Meds: Active Medications Acetylcysteine 15,000 mg/ (Dextrose) 275 mls @ 200 mls/hr IV ONCE ONE Stop: 09/02/20 09:22 Last Admin: 09/02/20 08:09 Dose: 200 mls/hr Documented by: Acetylcysteine 5,000 mg/ (Dextrose) 525 mls @ 125 mls/hr IV ONCE ONE Stop: 09/02/20 13:11 Acetylcysteine 10,000 mg/ (Dextrose) 1,050 mls @ 62.5 mls/hr IV ONCE ONE Stop: 09/03/20 05:47 Mental Status Exam - Vital signs Last Vital Signs Temp 98.6 F 09/01/20 21:51 Pulse 71 09/02/20 08:01 Resp 16 09/02/20 08:01 BP 109/74 09/02/20 08:01 Pulse Ox 98 09/02/20 08:01 Results Result Diagrams: 09/01/20 21:20 09/01/20 21:20 Abnormal lab results 09/01/20 09/01/20 09/01/20 Range/Units 21:20 21:20 21:20 PT (12.2-14.9) Sec. INR (0.87-1.13) Glucose 115 H (65-100) mg/dL Albumin 3.8 L (3.9-5) g/dL Salicylates < 0.3 L (2.8-20.0) mg/dL Acetaminophen 6.1 L (10.0-30.0) ug/mL 09/01/20 09/02/20 09/02/20 Range/Units 22:38 01:50 05:38 PT 15.1 H (12.2-14.9) Sec. INR 1.19 H (0.87-1.13) Glucose (65-100) mg/dL Albumin (3.9-5) g/dL Salicylates (2.8-20.0) mg/dL Acetaminophen 69.8 H 81.2 H (10.0-30.0) ug/mL All other labs normal. Assessment and Plan - Psychiatric problem (1) Depression Current Visit: Yes Status: Acute Qualifiers: Psychotic features: without psychotic features
[2020-09-02] MEDS ORDERED: ONDANSETRON 4 MG/2 ML INJ IV PRN (09:42)
[2020-09-02] MEDS ORDERED: PANTOPRAZOLE 40 MG INJ IV SCH (10:00)
[2020-09-02 10:09] LABS: Bilirubin,Urine NEG (Negative); Blood,Urine NEG (Negative); Color,Urine Yellow (Yellow); Mucus,Urine 1+ /HPF; Urobilinogen,Urine < 2.0 mg/dL (<2.0)
[2020-09-02] MEDS ORDERED: ACETAMINOPHEN 325 MG TAB PO PRN (10:12)
[2020-09-02] MEDS ORDERED: ALBUTEROL 2.5 MG/3 ML NEBU IH PRN (10:12)
[2020-09-02 10:15] LABS: Amphetamine Screen,Urine Negative; Benzodiazepines Screen,Urine Negative; Cannabinoid Screen,Urine Negative; Cocaine Screen,Urine Negative; Methadone Screen,Urine Negative; Opiate Screen,Urine Negative
--- NOTE | 2020-09-02 10:22 | History and Physical Report ---
History of Present Illness Date of examination: 09/02/20 Date of admission: 09/02/20 07:24 Chief complaint: Tylenol overdose suicidal attempt History of present illness: 19 years old female with history of schizophrenia was brought to the emergency room by EMS after taking 3 handfuls of Tylenol. Patient states able to 500 mg tablets. The Tylenol was taken around 8 PM and was witnessed by her roommate. Patient states that she has a history of schizophrenia with suicide attempts in the past with the last one being 2 weeks ago. She says she has a self-harm who likes to cut her wrists. She states today voices were telling her to hurt himself and others by slicing her throat. She states this overwhelmed her so she ran to the home to grab a sharp item to slice her self but she cannot find it so instead she took the Tylenol. In the emergency room patient Tylenol level is 81.2 Past History Past Medical History: other (Schizophrenia) Medications and Allergies Allergies Allergy/AdvReac Type Severity Reaction Status Date / Time No Known Allergies Allergy Verified 12/11/19 18:32 Home Medications Medication Instructions Recorded Confirmed Last Taken Type FLUoxetine HCL [FLUoxetine] 60 mg PO QHS 09/02/20 09/02/20 Unknown History OLANZapine [Zyprexa Zydis] 20 mg PO QHS 09/02/20 09/02/20 Unknown History Simvastatin 10 mg PO QHS 09/02/20 09/02/20 Unknown History Ziprasidone HCl [Geodon] 80 mg PO QHS 09/02/20 09/02/20 Unknown History Ziprasidone [Geodon] 60 mg PO QAM 09/02/20 09/02/20 Unknown History hydrOXYzine PAMOATE [Vistaril] 25 mg PO QAM 09/02/20 09/02/20 Unknown History hydrOXYzine PAMOATE [Vistaril] 25 mg PO QHS 09/02/20 09/02/20 Unknown History Active Meds: Active Medications Acetaminophen (Acetaminophen 325 Mg Tab) 650 mg PO Q4H PRN PRN Reason: Pain MILD(1-3)/Fever >100.5/SALINAS Albuterol (Albuterol 2.5 Mg/3 Ml Nebu) 2.5 mg IH Q4HRT PRN PRN Reason: Shortness Of Breath Famotidine (Famotidine 20 Mg/2 Ml Inj) 20 mg IV BID WAGNER Acetylcysteine 5,000 mg/ (Dextrose) 525 mls @ 125 mls/hr IV ONCE ONE Stop: 09/02/20 13:11 Last Admin: 09/02/20 09:05 Dose: 125 mls/hr Documented by: Acetylcysteine 10,000 mg/ (Dextrose) 1,050 mls @ 62.5 mls/hr IV ONCE ONE Stop: 09/03/20 05:47 Dextrose/Sodium Chloride (D5/0.45ns) 1,000 mls @ 125 mls/hr IV DIRECT WAGNER Ondansetron HCl (Ondansetron 4 Mg/2 Ml Inj) 4 mg IV Q6H PRN PRN Reason: Nausea And Vomiting Ondansetron HCl (Ondansetron 4 Mg/2 Ml Inj) 4 mg IV Q8H PRN PRN Reason: Nausea And Vomiting Pantoprazole Sodium (Pantoprazole 40 Mg Inj) 40 mg IV BID WAGNER Sodium Chloride (Sodium Chloride 0.9% 10 Ml Flush Syringe) 10 ml IV BID WAGNER Sodium Chloride (Sodium Chloride 0.9% 10 Ml Flush Syringe) 10 ml IV PRN PRN PRN Reason: LINE FLUSH Exam - Constitutional Vitals: Temp Pulse Resp BP Pulse Ox 98.6 F 71 16 109/74 98 09/01/20 21:51 09/02/20 08:01 09/02/20 08:01 09/02/20 08:01 09/02/20 08:01 General appearance: Present: no acute distress, well-nourished - EENT Eyes: Present: PERRL ENT: hearing intact, clear oral mucosa - Neck Neck: Present: supple, normal ROM - Respiratory Respiratory effort: normal Respiratory: bilateral: CTA - Cardiovascular Heart Sounds: Present: S1 & S2. Absent: rub, click - Extremities Extremities: pulses symmetrical, No edema Peripheral Pulses: within normal limits - Abdominal General gastrointestinal: Present: soft, non-tender, non-distended, normal bowel sounds Female genitourinary: Present: normal - Integumentary Integumentary: Present: clear, warm, dry - Musculoskeletal Musculoskeletal: gait normal, strength equal bilaterally - Psychiatric Psychiatric: appropriate mood/affect, intact judgment & insight - Neurologic Neurologic: CNII-XII intact, moves all extremities Results - Labs CBC & Chem 7: 09/01/20 21:20 09/01/20 21:20 Labs: Laboratory Last Values WBC 9.4 K/mm3 (4.5-11.0) 09/01/20 21:20 RBC 4.52 M/mm3 (3.65-5.03) 09/01/20 21:20 Hgb 12.5 gm/dl (10.1-14.3) 09/01/20 21:20 Hct 37.7 % (30.3-42.9) 09/01/20 21:20 MCV 84 fl (79-97) 09/01/20 21:20 MCH 28 pg (28-32) 09/01/20 21:20 MCHC 33 % (30-34) 09/01/20 21:20 RDW 14.7 % (13.2-15.2) 09/01/20 21:20 Plt Count 261 K/mm3 (140-440) 09/01/20 21:20 Lymph % (Auto) 34.2 % (13.4-35.0) 09/01/20 21:20 [place] % (Auto) 5.4 % (0.0-7.3) 09/01/20 21:20 Eos % (Auto) 0.6 % (0.0-4.3) 09/01/20 21:20 Baso % (Auto) 0.3 % (0.0-1.8) 09/01/20 21:20 Lymph # (Auto) 3.2 K/mm3 (1.2-5.4) 09/01/20 21:20 [place] # (Auto) 0.5 K/mm3 (0.0-0.8) 09/01/20 21:20 Eos # (Auto) 0.1 K/mm3 (0.0-0.4) 09/01/20 21:20 Baso # (Auto) 0.0 K/mm3 (0.0-0.1) 09/01/20 21:20 Seg Neutrophils % 59.5 % (40.0-70.0) 09/01/20 21:20 Seg Neutrophils # 5.6 K/mm3 (1.8-7.7) 09/01/20 21:20 PT 15.1 Sec. (12.2-14.9) H 09/01/20 22:38 INR 1.19 (0.87-1.13) H 09/01/20 22:38 APTT 30.3 Sec. (24.2-36.6) 09/01/20 22:38 Sodium 137 mmol/L (137-145) 09/01/20 21:20 Potassium 4.0 mmol/L (3.6-5.0) 09/01/20 21:20 Chloride 102.3 mmol/L (98-107) 09/01/20 21:20 Carbon Dioxide 25 mmol/L (22-30) 09/01/20 21:20 Anion Gap 14 mmol/L 09/01/20 21:20 BUN 11 mg/dL (7-17) 09/01/20 21:20 Creatinine 0.8 mg/dL (0.6-1.2) 09/01/20 21:20 Estimated GFR > 60 ml/min 09/01/20 21:20 BUN/Creatinine Ratio 14 % 09/01/20 21:20 Glucose 115 mg/dL (65-100) H 09/01/20 21:20 Calcium 8.9 mg/dL (8.4-10.2) 09/01/20 21:20 Total Bilirubin 0.30 mg/dL (0.1-1.2) 09/01/20 21:20 AST 24 units/L (5-40) 09/01/20 21:20 ALT 22 units/L (7-56) 09/01/20 21:20 Alkaline Phosphatase 107 units/L (35-129) 09/01/20 21:20 Total Protein 7.9 g/dL (6.3-8.2) 09/01/20 21:20 Albumin 3.8 g/dL (3.9-5) L 09/01/20 21:20 Albumin/Globulin Ratio 0.9 % 09/01/20 21:20 HCG, Qual Negative (Negative) 09/01/20 21:20 Urine Color Yellow (Yellow) 09/02/20 09:30 Urine Turbidity Clear (Clear) 09/02/20 09:30 Urine pH 5.0 (5.0-7.0) 09/02/20 09:30 Ur Specific [place] 1.042 (1.003-1.030) H 09/02/20 09:30 Urine Protein 30 mg/dl mg/dL (Negative) 05/06/21 09:30 Urine Glucose (UA) Neg mg/dL (Negative) 09/02/20 09:30 Urine Ketones 80 mg/dL (Negative) 09/02/20 09:30 Urine Blood Neg (Negative) 09/02/20 09:30 Urine Nitrite Neg (Negative) 09/02/20 09:30 Urine Bilirubin Neg (Negative) 09/02/20 09:30 Urine Urobilinogen < 2.0 mg/dL (<2.0) 09/02/20 09:30 Ur Leukocyte Esterase Neg (Negative) 09/02/20 09:30 Urine WBC (Auto) 2.0 /HPF (0.0-6.0) 09/02/20 09:30 Urine RBC (Auto) 2.0 /HPF (0.0-6.0) 09/02/20 09:30 U Epithel Cells (Auto) 10.0 /HPF (0-13.0) 09/02/20 09:30 Urine Mucus 1+ /HPF 09/02/20 09:30 Salicylates < 0.3 mg/dL (2.8-20.0) L 09/01/20 21:20 Urine Opiates Screen Negative 09/02/20 09:30 Urine Methadone Screen Negative 09/02/20 09:30 Acetaminophen 81.2 ug/mL (10.0-30.0) H 09/02/20 05:38 Ur Barbiturates Screen Negative 09/02/20 09:30 Ur Phencyclidine Scrn Negative 09/02/20 09:30 Ur Amphetamines Screen Negative 09/02/20 09:30 U Benzodiazepines Scrn Negative 09/02/20 09:30 Urine Cocaine Screen Negative 09/02/20 09:30 U Marijuana (THC) Screen Negative 09/02/20 09:30 Plasma/Serum Alcohol < 0.01 % (0-0.07) 09/01/20 21:20 Assessment and Plan VTE prophylaxis?: Chemical Plan of care discussed with patient/family: Yes - Patient Problems (1) Tylenol overdose Current Visit: Yes Status: Acute Plan to address problem: Admit the patient to the medical telemetry put the patient on cardiac diet. IV fluid D5 half-normal saline at the rate of 125 cc/h. Pepcid 20 mg IV every 12 hours. Patient is on Acetadote as per protocol. We will repeat that Tylenol level. We also check CBC CMP in the morning. Patient is seen and evaluated by psych. We also consult GI for precaution. We will repeat the LFT in the morning (2) Suicide attempt Current Visit: Yes Status: Acute Plan to address problem: We will continue the home psych medication. Patient is already seen and evaluated by psych. We continue 1013 and follow psych recommendation (3) Schizophrenia Current Visit: Yes Status: Acute Plan to address problem: We will continue the home psych medication. Patient is already seen and evaluated by psych. We continue 1013 and follow psych recommendation (4) Drug ingestion Current Visit: Yes Status: Acute Plan to address problem: put the patient on cardiac diet. IV fluid D5 half-normal saline at the rate of 125 cc/h. Pepcid 20 mg IV every 12 hours. Patient is on Acetadote as per protocol. We will repeat that Tylenol level. We also check CBC CMP in the morning. Patient is seen and evaluated by psych. We also consult GI for precaution. We will repeat the LFT in the morning (5) DVT prophylaxis Current Visit: Yes Status: Acute Plan to address problem: Heparin 5000 units subcu every 8 hours for DVT prophylaxis. Pepcid 20 mg IV every 12 hours for GI prophylaxis. Patient is a full code
--- NOTE | 2020-09-02 10:48 | Gastroenterology Consultation ---
History of Present Illness - Reason for Consult Consult date: 09/02/20 Tylenol Overdose Requesting physician: MAY ERNST - History of Present Illness The patient is a 19 yo female who took "about 70" tylenol in a suicide attempt prior to admit. Her roommate called EMS. She has a hx of severe depression, and prior suicide attempts in the past. Currently, she has no N/V/abdominal pain/altered mental status (though affect very flat). She denies other drugs at the time, EtOH, or a hx of hepatitis. Past History Past Medical History: other (Schizophrenia/Depression with a hx of suicide attempts) Past Surgical History: No surgical history Social history: no significant social history Family history: no significant family history Medications and Allergies Allergies Allergy/AdvReac Type Severity Reaction Status Date / Time No Known Allergies Allergy Verified 12/11/19 18:32 Home Medications Medication Instructions Recorded Confirmed Last Taken Type FLUoxetine HCL [FLUoxetine] 60 mg PO QHS 09/02/20 09/02/20 Unknown History OLANZapine [Zyprexa Zydis] 20 mg PO QHS 09/02/20 09/02/20 Unknown History Simvastatin 10 mg PO QHS 09/02/20 09/02/20 Unknown History Ziprasidone HCl [Geodon] 80 mg PO QHS 09/02/20 09/02/20 Unknown History Ziprasidone [Geodon] 60 mg PO QAM 09/02/20 09/02/20 Unknown History hydrOXYzine PAMOATE [Vistaril] 25 mg PO QAM 09/02/20 09/02/20 Unknown History hydrOXYzine PAMOATE [Vistaril] 25 mg PO QHS 09/02/20 09/02/20 Unknown History Active Meds: Active Medications Albuterol (Albuterol 2.5 Mg/3 Ml Nebu) 2.5 mg IH Q4HRT PRN PRN Reason: Shortness Of Breath Famotidine (Famotidine 20 Mg/2 Ml Inj) 20 mg IV BID WAGNER Heparin Sodium (Porcine) (Heparin 5,000 Unit/1 Ml Vial) 5,000 unit SUB-Q Q8HR WAGNER Acetylcysteine 5,000 mg/ (Dextrose) 525 mls @ 125 mls/hr IV ONCE ONE Stop: 09/02/20 13:11 Last Admin: 09/02/20 09:05 Dose: 125 mls/hr Documented by: Acetylcysteine 10,000 mg/ (Dextrose) 1,050 mls @ 62.5 mls/hr IV ONCE ONE Stop: 09/03/20 05:47 Dextrose/Sodium Chloride (D5/0.45ns) 1,000 mls @ 125 mls/hr IV DIRECT WAGNER Ondansetron HCl (Ondansetron 4 Mg/2 Ml Inj) 4 mg IV Q6H PRN PRN Reason: Nausea And Vomiting Last Admin: 09/02/20 10:31 Dose: 4 mg Documented by: Ondansetron HCl (Ondansetron 4 Mg/2 Ml Inj) 4 mg IV Q8H PRN PRN Reason: Nausea And Vomiting Pantoprazole Sodium (Pantoprazole 40 Mg Inj) 40 mg IV BID WAGNER Last Admin: 09/02/20 10:31 Dose: 40 mg Documented by: Sodium Chloride (Sodium Chloride 0.9% 10 Ml Flush Syringe) 10 ml IV BID WAGNER Sodium Chloride (Sodium Chloride 0.9% 10 Ml Flush Syringe) 10 ml IV PRN PRN PRN Reason: LINE FLUSH I HAVE REVIEWED/RECONCILED MEDICATIONS Review of Systems - Review of Systems All systems: negative (as noted in the HPI) Exam - Constitutional Vital Signs: Temp Pulse Resp BP Pulse Ox 98.6 F 71 16 109/74 98 09/01/20 21:51 09/02/20 08:01 09/02/20 08:01 09/02/20 08:01 09/02/20 08:01 General appearance: no acute distress - EENT Eyes: PERRL, EOM intact ENT: hearing intact, clear oral mucosa - Neck Neck: supple, normal ROM - Respiratory Respiratory effort: normal Respiratory: bilateral: CTA - Cardiovascular Rhythm: regular Heart Sounds: Present: S1 & S2 Extremities: no ischemia, No edema - Gastrointestinal General gastrointestinal: Present: soft, non-tender, non-distended - Integumentary Integumentary: Present: clear, warm, dry - Neurologic Neurological: alert and oriented x3 - Psychiatric Psychiatric: depressed (Affect very flat) - Labs CBC & Chem 7: 09/01/20 21:20 09/01/20 21:20 Lab Results: Laboratory Results - last 24 hr 09/01/20 09/01/20 09/01/20 21:20 21:20 21:20 WBC 9.4 RBC 4.52 Hgb 12.5 Hct 37.7 MCV 84 MCH 28 MCHC 33 RDW 14.7 Plt Count 261 Lymph % (Auto) 34.2 [place] % (Auto) 5.4 Eos % (Auto) 0.6 Baso % (Auto) 0.3 Lymph # (Auto) 3.2 Price # (Auto) 0.5 Eos # (Auto) 0.1 Baso # (Auto) 0.0 Seg Neutrophils % 59.5 Seg Neutrophils # 5.6 PT INR APTT Sodium Potassium Chloride Carbon Dioxide Anion Gap BUN Creatinine Estimated GFR BUN/Creatinine Ratio Glucose Calcium Total Bilirubin AST ALT Alkaline Phosphatase Total Protein Albumin Albumin/Globulin Ratio HCG, Qual Urine Color Urine Turbidity Urine pH Ur Specific [place] Urine Protein Urine Glucose (UA) Urine Ketones Urine Blood Urine Nitrite Urine Bilirubin Urine Urobilinogen Ur Leukocyte Esterase Urine WBC (Auto) Urine RBC (Auto) U Epithel Cells (Auto) Urine Mucus Salicylates < 0.3 L Urine Opiates Screen Urine Methadone Screen Acetaminophen 6.1 L Ur Barbiturates Screen Ur Phencyclidine Scrn Ur Amphetamines Screen U Benzodiazepines Scrn Urine Cocaine Screen U Marijuana (THC) Screen Drugs of Abuse Note Plasma/Serum Alcohol 09/01/20 09/01/20 09/01/20 21:20 21:20 21:20 WBC RBC Hgb Hct MCV MCH MCHC RDW Plt Count Lymph % (Auto) Price % (Auto) Eos % (Auto) Baso % (Auto) Lymph # (Auto) Price # (Auto) Eos # (Auto) Baso # (Auto) Seg Neutrophils % Seg Neutrophils # PT INR APTT Sodium 137 Potassium 4.0 Chloride 102.3 Carbon Dioxide 25 Anion Gap 14 BUN 11 Creatinine 0.8 Estimated GFR > 60 BUN/Creatinine Ratio 14 Glucose 115 H Calcium 8.9 Total Bilirubin 0.30 AST 24 ALT 22 Alkaline Phosphatase 107 Total Protein 7.9 Albumin 3.8 L Albumin/Globulin Ratio 0.9 HCG, Qual Negative Urine Color Urine Turbidity Urine pH Ur Specific [place] Urine Protein Urine Glucose (UA) Urine Ketones Urine Blood Urine Nitrite Urine Bilirubin Urine Urobilinogen Ur Leukocyte Esterase Urine WBC (Auto) Urine RBC (Auto) U Epithel Cells (Auto) Urine Mucus Salicylates Urine Opiates Screen Urine Methadone Screen Acetaminophen Ur Barbiturates Screen Ur Phencyclidine Scrn Ur Amphetamines Screen U Benzodiazepines Scrn Urine Cocaine Screen U Marijuana (THC) Screen Drugs of Abuse Note Plasma/Serum Alcohol < 0.01 09/01/20 09/02/20 09/02/20 22:38 01:50 05:38 WBC RBC Hgb Hct MCV MCH MCHC RDW Plt Count Lymph % (Auto) Price % (Auto) Eos % (Auto) Baso % (Auto) Lymph # (Auto) Price # (Auto) Eos # (Auto) Baso # (Auto) Seg Neutrophils % Seg Neutrophils # PT 15.1 H INR 1.19 H APTT 30.3 Sodium Potassium Chloride Carbon Dioxide Anion Gap BUN Creatinine Estimated GFR BUN/Creatinine Ratio Glucose Calcium Total Bilirubin AST ALT Alkaline Phosphatase Total Protein Albumin Albumin/Globulin Ratio HCG, Qual Urine Color Urine Turbidity Urine pH Ur Specific [place] Urine Protein Urine Glucose (UA) Urine Ketones Urine Blood Urine Nitrite Urine Bilirubin Urine Urobilinogen Ur Leukocyte Esterase Urine WBC (Auto) Urine RBC (Auto) U Epithel Cells (Auto) Urine Mucus Salicylates Urine Opiates Screen Urine Methadone Screen Acetaminophen 69.8 H 81.2 H Ur Barbiturates Screen Ur Phencyclidine Scrn Ur Amphetamines Screen U Benzodiazepines Scrn Urine Cocaine Screen U Marijuana (THC) Screen Drugs of Abuse Note Plasma/Serum Alcohol 09/02/20 09/02/20 09:30 09:30 WBC RBC Hgb Hct MCV MCH MCHC RDW Plt Count Lymph % (Auto) Price % (Auto) Eos % (Auto) Baso % (Auto) Lymph # (Auto) Price # (Auto) Eos # (Auto) Baso # (Auto) Seg Neutrophils % Seg Neutrophils # PT INR APTT Sodium Potassium Chloride Carbon Dioxide Anion Gap BUN Creatinine Estimated GFR BUN/Creatinine Ratio Glucose Calcium Total Bilirubin AST ALT Alkaline Phosphatase Total Protein Albumin Albumin/Globulin Ratio HCG, Qual Urine Color Yellow Urine Turbidity Clear Urine pH 5.0 Ur Specific [place] 1.042 H Urine Protein 30 mg/dl Urine Glucose (UA) Neg Urine Ketones 80 Urine Blood Neg Urine Nitrite Neg Urine Bilirubin Neg Urine Urobilinogen < 2.0 Ur Leukocyte Esterase Neg Urine WBC (Auto) 2.0 Urine RBC (Auto) 2.0 U Epithel Cells (Auto) 10.0 Urine Mucus 1+ Salicylates Urine Opiates Screen Negative Urine Methadone Screen Negative Acetaminophen Ur Barbiturates Screen Negative Ur Phencyclidine Scrn Negative Ur Amphetamines Screen Negative U Benzodiazepines Scrn Negative Urine Cocaine Screen Negative U Marijuana (THC) Screen Negative Drugs of Abuse Note Disclamer Plasma/Serum Alcohol Assessment and Plan - Patient Problems (1) Tylenol overdose Current Visit: Yes Status: Acute Plan to address problem: - Acetadote started at appropriate dose (and prior to significant elevation of tylenol levels). - Will continue to trend labs, and mental status/vitals. - Given prior suicide attempts, and poorly controlled mental illness, she is not a candidate for a liver transplant evaluation.
[2020-09-02] MEDS ORDERED: D5W/0.45% NACL 1,000 ML IV SCH (11:00)
[2020-09-02] MEDS ORDERED: ACETADOTE(ACETYLCYSTEINE IV) 10,000 MG in DEXTROSE 5% IN WATER 1,000 ML IV ONE (13:00)
[2020-09-02] MEDS: HEPARIN 5,000 UNIT/1 ML VIAL SUB-Q SCH ×2 (13:01→22:24)
--- NOTE | 2020-09-02 17:54 | Electrocardiograph Report ---
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
[2020-09-02] MEDS ORDERED: FAMOTIDINE 20 MG/2 ML INJ IV SCH (22:00)
[2020-09-02] MEDS: ONDANSETRON 4 MG/2 ML INJ IV PRN (23:09)
[2020-09-03] MEDS: HEPARIN 5,000 UNIT/1 ML VIAL SUB-Q SCH ×3 (05:06→21:34)
[2020-09-03 07:51] LABS: Hematocrit 39.1 % (30.3-42.9); Hemoglobin 12.7 gm/dl (10.1-14.3); Mean Corpuscular HGB Conc 33 % (30-34); Mean Corpuscular Volume 83 fl (79-97); Platelet Count 275 K/mm3 (140-440); Red Blood Count 4.69 M/mm3 (3.65-5.03); Red Cell Distribution Width 15.1 % (13.2-15.2)
[2020-09-03 07:57] LABS: INR 1.23 (0.87-1.13)
[2020-09-03 08:19] LABS: Alanine Aminotransferase 17 units/L (7-56); Albumin 3.5 g/dL (3.9-5); Blood Urea Nitrogen 7 mg/dL (7-17); Calcium 8.7 mg/dL (8.4-10.2); Hemolysis Index 3
[2020-09-03 08:25] LABS: BUN/Creatinine Ratio 10
[2020-09-03 08:50] LABS: Total Cells Counted 100
[2020-09-03 08:51] LABS: Platelet Estimate Consistent w Auto; RBC Morphology Normal
[2020-09-03] MEDS: MULTIVITAMINS ,THERAPEUTIC TAB PO SCH (09:03)
[2020-09-03] MEDS ORDERED: PANTOPRAZOLE 40 MG INJ IV SCH (10:00)
--- NOTE | 2020-09-03 10:54 | Progress Note ---
Assessment and Plan Assessment and plan: Assessment and Plan VTE prophylaxis?: Chemical Plan of care discussed with patient/family: Yes - Patient Problems (1) Tylenol overdose Current Visit: Yes Status: Acute Plan to address problem: Admit the patient to the medical telemetry put the patient on cardiac diet. IV fluid D5 half-normal saline at the rate of 125 cc/h. Pepcid 20 mg IV every 12 hours. Patient is on Acetadote as per protocol. We will repeat that Tylenol l evel. We also check CBC CMP in the morning. Patient is seen and evaluated by psych. We also consult GI for precaution. We will repeat the LFT in the morning (2) Suicide attempt Current Visit: Yes Status: Acute Plan to address problem: We will continue the home psych medication. Patient is already seen and evaluated by psych. We continue 1013 and follow psych recommendation (3) Schizophrenia Current Visit: Yes Status: Acute Plan to address problem: We will continue the home psych medication. Patient is already seen and evaluated by psych. We continue 1013 and follow psych recommendation (4) Drug ingestion Current Visit: Yes Status: Acute Plan to address problem: put the patient on cardiac diet. IV fluid D5 half-normal saline at the rate of 125 cc/h. Pepcid 20 mg IV every 12 hours. Patient is on Acetadote as per protocol. We will repeat that Tylenol level. We also check CBC CMP in the mo rning. Patient is seen and evaluated by psych. We also consult GI for precaution. We will repeat the LFT in the morning (5) DVT prophylaxis Current Visit: Yes Status: Acute Plan to address problem: Heparin 5000 units subcu every 8 hours for DVT prophylaxis. Pepcid 20 mg IV every 12 hours for GI prophylaxis. Patient is a full code 09/03/20 Patient is doing better. Tylenol level is 5.0. Liver function test are normal. Continue current management. Recheck CMP in the morning. Discharge plan when cleared by GI. Patient already seen and evaluated by psych. Outpatient follow-up with psych. Discharge planning morning if okay with GI. - Patient Problems (1) Tylenol overdose Current Visit: Yes Status: Acute (2) Suicide attempt Current Visit: Yes Status: Acute (3) Schizophrenia Current Visit: Yes Status: Acute (4) Drug ingestion Current Visit: Yes Status: Acute (5) DVT prophylaxis Current Visit: Yes Status: Acute History Interval history: Patient is seen and examined Patient chart labs and medications reviewed Patient is doing good. No nausea vomiting no abdominal pain. Vitals are stable Hospitalist Physical - Constitutional Vitals: Temp Pulse Resp BP Pulse Ox 98.2 F 93 H 18 99/47 99 09/03/20 06:35 09/03/20 06:45 09/03/20 06:35 09/03/20 06:35 09/03/20 07:28 General appearance: Present: no acute distress, well-nourished Results - Labs CBC & Chem 7: 09/03/20 06:54 09/03/20 06:54 Labs: Laboratory Last Values WBC 6.7 K/mm3 (4.5-11.0) 09/03/20 06:54 RBC 4.69 M/mm3 (3.65-5.03) 09/03/20 06:54 Hgb 12.7 gm/dl (10.1-14.3) 09/03/20 06:54 Hct 39.1 % (30.3-42.9) 09/03/20 06:54 MCV 83 fl (79-97) 09/03/20 06:54 MCH 27 pg (28-32) L 09/03/20 06:54 MCHC 33 % (30-34) 09/03/20 06:54 RDW 15.1 % (13.2-15.2) 09/03/20 06:54 Plt Count 275 K/mm3 (140-440) 09/03/20 06:54 Lymph % (Auto) Organisation And Methods Analyst 09/03/20 06:54 Smyth % (Auto) 5.4 % (0.0-7.3) 09/01/20 21:20 Eos % (Auto) 0.6 % (0.0-4.3) 09/01/20 21:20 Baso % (Auto) 0.3 % (0.0-1.8) 09/01/20 21:20 Lymph # (Auto) 3.2 K/mm3 (1.2-5.4) 09/01/20 21:20 Smyth # (Auto) 0.5 K/mm3 (0.0-0.8) 09/01/20 21:20 Eos # (Auto) 0.1 K/mm3 (0.0-0.4) 09/01/20 21:20 Baso # (Auto) 0.0 K/mm3 (0.0-0.1) 09/01/20 21:20 Add Manual Diff Complete 09/03/20 06:54 Total Counted 100 09/03/20 06:54 Seg Neutrophils % Organisation And Methods Analyst 09/03/20 06:54 Seg Neuts % (Manual) 35.0 % (40.0-70.0) L 09/03/20 06:54 Lymphocytes % (Manual) 62.0 % (13.4-35.0) H 09/03/20 06:54 Monocytes % (Manual) 3.0 % (0.0-7.3) 09/03/20 06:54 Nucleated RBC % Not Reportable 09/03/20 06:54 Seg Neutrophils # 5.6 K/mm3 (1.8-7.7) 09/01/20 21:20 Seg Neutrophils # Man 2.3 K/mm3 (1.8-7.7) 09/03/20 06:54 Band Neutrophils # 0.0 K/mm3 09/03/20 06:54 Lymphocytes # (Manual) 4.2 K/mm3 (1.2-5.4) 09/03/20 06:54 Abs React Lymphs (Man) 0.0 K/mm3 09/03/20 06:54 Monocytes # (Manual) 0.2 K/mm3 (0.0-0.8) 09/03/20 06:54 Eosinophils # (Manual) 0.0 K/mm3 (0.0-0.4) 09/03/20 06:54 Basophils # (Manual) 0.0 K/mm3 (0.0-0.1) 09/03/20 06:54 Metamyelocytes # 0.0 K/mm3 09/03/20 06:54 Myelocytes # 0.0 K/mm3 09/03/20 06:54 Promyelocytes # 0.0 K/mm3 09/03/20 06:54 Blast Cells # 0.0 K/mm3 09/03/20 06:54 WBC Morphology Not Reportable 09/03/20 06:54 Hypersegmented Neuts Not Reportable 09/03/20 06:54 Hyposegmented Neuts Not Reportable 09/03/20 06:54 Hypogranular Neuts Not Reportable 09/03/20 06:54 Smudge Cells Not Reportable 09/03/20 06:54 Toxic Granulation Not Reportable 09/03/20 06:54 Toxic Vacuolation Not Reportable 09/03/20 06:54 Dohle Bodies Not Reportable 09/03/20 06:54 Pelger-Huet Anomaly Not Reportable 09/03/20 06:54 Ginny Rods Not Reportable 09/03/20 06:54 Platelet Estimate Consistent w auto 09/03/20 06:54 Clumped Platelets Not Reportable 09/03/20 06:54 Plt Clumps, EDTA Not Reportable 09/03/20 06:54 Large Platelets Not Reportable 09/03/20 06:54 Giant Platelets Not Reportable 09/03/20 06:54 Platelet Satelliting Not Reportable 09/03/20 06:54 Plt Morphology Comment Not Reportable 09/03/20 06:54 RBC Morphology Normal 09/03/20 06:54 Dimorphic RBCs Not Reportable 09/03/20 06:54 Polychromasia Not Reportable 09/03/20 06:54 Hypochromasia Not Reportable 09/03/20 06:54 Poikilocytosis Not Reportable 09/03/20 06:54 Anisocytosis Not Reportable 09/03/20 06:54 Microcytosis Not Reportable 09/03/20 06:54 Macrocytosis Not Reportable 09/03/20 06:54 Spherocytes Not Reportable 09/03/20 06:54 Pappenheimer Bodies Not Reportable 09/03/20 06:54 Sickle Cells Not Reportable 09/03/20 06:54 Target Cells Not Reportable 09/03/20 06:54 Tear Drop Cells Not Reportable 09/03/20 06:54 Ovalocytes Not Reportable 09/03/20 06:54 Helmet Cells Not Reportable 09/03/20 06:54 [place] Bodies Not Reportable 09/03/20 06:54 [place] Rings Not Reportable 09/03/20 06:54 Rufus Cells Not Reportable 09/03/20 06:54 Bite Cells Not Reportable 09/03/20 06:54 Crenated Cell Not Reportable 09/03/20 06:54 Elliptocytes Not Reportable 09/03/20 06:54 Acanthocytes (Spur) Not Reportable 09/03/20 06:54 Rouleaux Not Reportable 09/03/20 06:54 Hemoglobin C Crystals Not Reportable 09/03/20 06:54 Schistocytes Not Reportable 09/03/20 06:54 Malaria parasites Not Reportable 09/03/20 06:54 Khadar Bodies Not Reportable 09/03/20 06:54 Hem Pathologist Commnt No 09/03/20 06:54 PT 15.3 Sec. (12.2-14.9) H 09/03/20 06:54 INR 1.23 (0.87-1.13) H 09/03/20 06:54 APTT 30.3 Sec. (24.2-36.6) 09/01/20 22:38 Sodium 139 mmol/L (137-145) 09/03/20 06:54 Potassium 3.8 mmol/L (3.6-5.0) 09/03/20 06:54 Chloride 104.5 mmol/L (98-107) 09/03/20 06:54 Carbon Dioxide 23 mmol/L (22-30) 09/03/20 06:54 Anion Gap 15 mmol/L 09/03/20 06:54 BUN 7 mg/dL (7-17) 09/03/20 06:54 Creatinine 0.7 mg/dL (0.6-1.2) 09/03/20 06:54 Estimated GFR > 60 ml/min 09/03/20 06:54 BUN/Creatinine Ratio 10 % 09/03/20 06:54 Glucose 127 mg/dL (65-100) H 09/03/20 06:54 Calcium 8.7 mg/dL (8.4-10.2) 09/03/20 06:54 Total Bilirubin 0.30 mg/dL (0.1-1.2) 09/03/20 06:54 AST 17 units/L (5-40) 09/03/20 06:54 ALT 17 units/L (7-56) 09/03/20 06:54 Alkaline Phosphatase 91 units/L (35-129) 09/03/20 06:54 Total Protein 7.2 g/dL (6.3-8.2) 09/03/20 06:54 Albumin 3.5 g/dL (3.9-5) L 09/03/20 06:54 Albumin/Globulin Ratio 0.9 % 09/03/20 06:54 HCG, Qual Negative (Negative) 09/01/20 21:20 Urine Color Yellow (Yellow) 09/02/20 09:30 Urine Turbidity Clear (Clear) 09/02/20 09:30 Urine pH 5.0 (5.0-7.0) 09/02/20 09:30 Ur Specific [place] 1.042 (1.003-1.030) H 09/02/20 09:30 Urine Protein 30 mg/dl mg/dL (Negative) 09/02/20 09:30 Urine Glucose (UA) Neg mg/dL (Negative) 09/02/20 09:30 Urine Ketones 80 mg/dL (Negative) 09/02/20 09:30 Urine Blood Neg (Negative) 09/02/20 09:30 Urine Nitrite Neg (Negative) 09/02/20 09:30 Urine Bilirubin Neg (Negative) 09/02/20 09:30 Urine Urobilinogen < 2.0 mg/dL (<2.0) 09/02/20 09:30 Ur Leukocyte Esterase Neg (Negative) 09/02/20 09:30 Urine WBC (Auto) 2.0 /HPF (0.0-6.0) 09/02/20 09:30 Urine RBC (Auto) 2.0 /HPF (0.0-6.0) 09/02/20 09:30 U Epithel Cells (Auto) 10.0 /HPF (0-13.0) 09/02/20 09:30 Urine Mucus 1+ /HPF 09/02/20 09:30 Salicylates < 0.3 mg/dL (2.8-20.0) L 09/01/20 21:20 Urine Opiates Screen Negative 09/02/20 09:30 Urine Methadone Screen Negative 09/02/20 09:30 Acetaminophen 5.0 ug/mL (10.0-30.0) L 09/03/20 06:54 Ur Barbiturates Screen Negative 09/02/20 09:30 Ur Phencyclidine Scrn Negative 09/02/20 09:30 Ur Amphetamines Screen Negative 09/02/20 09:30 U Benzodiazepines Scrn Negative 09/02/20 09:30 Urine Cocaine Screen Negative 09/02/20 09:30 U Marijuana (THC) Screen Negative 09/02/20 09:30 Drugs of Abuse Note Disclamer 09/02/20 09:30 Plasma/Serum Alcohol < 0.01 % (0-0.07) 09/01/20 21:20 Coronavirus (PCR) Negative (Negative) 09/01/20 09:00 Ramos/IV: Voiding Method Toilet Active Medications - Current Medications Current Medications: Generic Name Dose Route Start Last Admin Trade Name Freq PRN Reason Stop Dose Admin Albuterol 2.5 mg 09/02/20 10:12 Albuterol 2.5 Mg/3 Ml Nebu IH Q4HRT PRN Shortness Of Breath Heparin Sodium (Porcine) 5,000 unit 09/02/20 14:00 09/03/20 05:06 Heparin 5,000 Unit/1 Ml Vial SUB-Q 5,000 unit Q8HR WAGNER Administration Dextrose/Sodium Chloride 1,000 mls @ 125 mls/hr 09/02/20 11:00 09/03/20 07:16 D5/0.45ns IV 125 mls/hr DIRECT WAGNER Administration Multivitamins 1 each 09/03/20 10:00 09/03/20 09:03 Multivitamins ,Therapeutic Tab PO 1 each QDAY WAGNER Administration Ondansetron HCl 4 mg 09/02/20 10:12 09/02/20 23:09 Ondansetron 4 Mg/2 Ml Inj IV 4 mg Q8H PRN Administration Nausea And Vomiting Pantoprazole Sodium 40 mg 09/03/20 10:00 09/03/20 09:04 Pantoprazole 40 Mg Inj IV 40 mg QDAY WAGNER Administration Sodium Chloride 10 ml 09/02/20 22:00 09/03/20 09:04 Sodium Chloride 0.9% 10 Ml Flush Syringe IV 10 ml BID WAGNER Administration Sodium Chloride 10 ml 09/02/20 10:12 Sodium Chloride 0.9% 10 Ml Flush Syringe IV PRN PRN LINE FLUSH Nutrition/Malnutrition Assess - Malnutrition Assessment Minimum of two criteria: No - Attestation Statement I have reviewed and agreed w/ Malnutrition eval & tx plan: Yes
[2020-09-03 10:57] LABS: Hepatitis B Surface Antigen Non-Reactive (Negative); Hepatitis C Virus Antibody Non-Reactive (NonReactive)
--- NOTE | 2020-09-03 18:18 | Gastroenterology Progress Note ---
Assessment and Plan - Patient Problems (1) Tylenol overdose Current Visit: Yes Status: Acute Plan to address problem: - Acetadote started at appropriate dose (and prior to significant elevation of tylenol levels). - Lab trend acceptable after completion of treatment. - Given prior suicide attempts, and poorly controlled mental illness, she is not a candidate for a liver transplant evaluation. - OK to discharge in the AM if her labs are stable. Will sign off; please call if needed. Subjective Date of service: 09/03/20 Principal diagnosis: Overdose Interval history: The patient has completed her Acetadote and has no mental status changes, N/V, or severe abdominal pain. Objective - Constitutional Vitals: Temp Pulse Resp BP Pulse Ox 98.5 F 81 22 106/64 100 09/03/20 17:33 09/03/20 17:33 09/03/20 17:33 09/03/20 17:33 09/03/20 17:33 General appearance: no acute distress - Respiratory Respiratory effort: normal Respiratory: bilateral: CTA - Cardiovascular Rhythm: regular Heart Sounds: Present: S1 & S2 - Gastrointestinal General gastrointestinal: Present: soft, non-tender, non-distended - Labs CBC & Chem 7: 09/03/20 06:54 09/03/20 06:54 Labs: Laboratory Results - last 24 hr 09/03/20 09/03/20 09/03/20 06:54 06:54 06:54 WBC 6.7 RBC 4.69 Hgb 12.7 Hct 39.1 MCV 83 MCH 27 L MCHC 33 RDW 15.1 Plt Count 275 Lymph % (Auto) Electro Mechanic Add Manual Diff Complete Total Counted 100 Seg Neutrophils % Electro Mechanic Seg Neuts % (Manual) 35.0 L Lymphocytes % (Manual) 62.0 H Monocytes % (Manual) 3.0 Nucleated RBC % Not Reportable Seg Neutrophils # Man 2.3 Band Neutrophils # 0.0 Lymphocytes # (Manual) 4.2 Abs React Lymphs (Man) 0.0 Monocytes # (Manual) 0.2 Eosinophils # (Manual) 0.0 Basophils # (Manual) 0.0 Metamyelocytes # 0.0 Myelocytes # 0.0 Promyelocytes # 0.0 Blast Cells # 0.0 WBC Morphology Not Reportable Hypersegmented Neuts Not Reportable Hyposegmented Neuts Not Reportable Hypogranular Neuts Not Reportable Smudge Cells Not Reportable Toxic Granulation Not Reportable Toxic Vacuolation Not Reportable Dohle Bodies Not Reportable Pelger-Huet Anomaly Not Reportable Ginny Rods Not Reportable Platelet Estimate Consistent w auto Clumped Platelets Not Reportable Plt Clumps, EDTA Not Reportable Large Platelets Not Reportable Giant Platelets Not Reportable Platelet Satelliting Not Reportable Plt Morphology Comment Not Reportable RBC Morphology Normal Dimorphic RBCs Not Reportable Polychromasia Not Reportable Hypochromasia Not Reportable Poikilocytosis Not Reportable Anisocytosis Not Reportable Microcytosis Not Reportable Macrocytosis Not Reportable Spherocytes Not Reportable Pappenheimer Bodies Not Reportable Sickle Cells Not Reportable Target Cells Not Reportable Tear Drop Cells Not Reportable Ovalocytes Not Reportable Helmet Cells Not Reportable Back-[place] Bodies Not Reportable [place] Rings Not Reportable Rufus Cells Not Reportable Bite Cells Not Reportable Crenated Cell Not Reportable Elliptocytes Not Reportable Acanthocytes (Spur) Not Reportable Rouleaux Not Reportable Hemoglobin C Crystals Not Reportable Schistocytes Not Reportable Malaria parasites Not Reportable Khadar Bodies Not Reportable Hem Pathologist Commnt No PT 15.3 H INR 1.23 H Sodium 139 Potassium 3.8 Chloride 104.5 Carbon Dioxide 23 Anion Gap 15 BUN 7 Creatinine 0.7 Estimated GFR > 60 BUN/Creatinine Ratio 10 Glucose 127 H Calcium 8.7 Total Bilirubin 0.30 AST 17 ALT 17 Alkaline Phosphatase 91 Total Protein 7.2 Albumin 3.5 L Albumin/Globulin Ratio 0.9 Acetaminophen Hepatitis A IgM Ab Hep Bs Antigen Hep B Core IgM Ab Hepatitis C Antibody 09/03/20 09/03/20 06:54 06:54 WBC RBC Hgb Hct MCV MCH MCHC RDW Plt Count Lymph % (Auto) Add Manual Diff Total Counted Seg Neutrophils % Seg Neuts % (Manual) Lymphocytes % (Manual) Monocytes % (Manual) Nucleated RBC % Seg Neutrophils # Man Band Neutrophils # Lymphocytes # (Manual) Abs React Lymphs (Man) Monocytes # (Manual) Eosinophils # (Manual) Basophils # (Manual) Metamyelocytes # Myelocytes # Promyelocytes # Blast Cells # WBC Morphology Hypersegmented Neuts Hyposegmented Neuts Hypogranular Neuts Smudge Cells Toxic Granulation Toxic Vacuolation Dohle Bodies Pelger-Huet Anomaly Ginny Rods Platelet Estimate Clumped Platelets Plt Clumps, EDTA Large Platelets Giant Platelets Platelet Satelliting Plt Morphology Comment RBC Morphology Dimorphic RBCs Polychromasia Hypochromasia Poikilocytosis Anisocytosis Microcytosis Macrocytosis Spherocytes Pappenheimer Bodies Sickle Cells Target Cells Tear Drop Cells Ovalocytes Helmet Cells [place] Bodies [place] Rings Rufus Cells Bite Cells Crenated Cell Elliptocytes Acanthocytes (Spur) Rouleaux Hemoglobin C Crystals Schistocytes Malaria parasites Khadar Bodies Hem Pathologist Commnt PT INR Sodium Potassium Chloride Carbon Dioxide Anion Gap BUN Creatinine Estimated GFR BUN/Creatinine Ratio Glucose Calcium Total Bilirubin AST ALT Alkaline Phosphatase Total Protein Albumin Albumin/Globulin Ratio Acetaminophen 5.0 L Hepatitis A IgM Ab Non-reactive Hep Bs Antigen Non-reactive Hep B Core IgM Ab Non-reactive Hepatitis C Antibody Non-reactive
[2020-09-03] MEDS: ZIPRASIDONE 40 MG CAP PO SCH (21:34)
[2020-09-03] MEDS: hydrOXYzine PAMOATE 25 MG CAP PO SCH (21:36)
[2020-09-03] MEDS ORDERED: ZIPRASIDONE MESYLATE 20 MG VIAL IM ONE (22:21)
--- NOTE | 2020-09-03 22:39 | Event Note ---
Date: 09/03/20 Called to see patient with known history of schizophrenia and who has been on admission for Tylenol overdose and suicide attempt and who has been expressing suicidal ideations this evening. Patient has been writing out plans and and items to use for suicide attempt. Patient was being followed by mental health and had been taken off 1013. Nurse has also indicated that patient attempted to leave the floor. I was at patient's bedside and she does not want to carry on any conversation. She does not appear to be in any distress. We will place patient on 1013 and will reconsult mental health for follow-up.
[2020-09-03] MEDS ORDERED: WATER FOR INJ Sterile (PF) 10 ML ONE (22:58)
[2020-09-03] MEDS ORDERED: WATER FOR INJ Sterile (PF) 10 ML IM ONE (23:00)
[2020-09-04 00:55] LABS: Alanine Aminotransferase 17 units/L (7-56); Blood Urea Nitrogen 6 mg/dL (7-17); Calcium 8.9 mg/dL (8.4-10.2); Hemolysis Index 5
[2020-09-04] MEDS: FLUoxetine 10 MG TAB PO SCH ×2 (00:55→23:34)
[2020-09-04 01:06] LABS: BUN/Creatinine Ratio 9
[2020-09-04] MEDS: HEPARIN 5,000 UNIT/1 ML VIAL SUB-Q SCH ×3 (05:38→23:36)
[2020-09-04] MEDS: PANTOPRAZOLE 40 MG TAB PO SCH (08:40)
[2020-09-04] MEDS: hydrOXYzine PAMOATE 25 MG CAP PO SCH ×2 (09:59→23:37)
[2020-09-04] MEDS: ZIPRASIDONE 60 MG CAP PO SCH (10:00)
[2020-09-04] MEDS: MULTIVITAMINS ,THERAPEUTIC TAB PO SCH (10:00)
--- NOTE | 2020-09-04 10:10 | Progress Note ---
Assessment and Plan Assessment and plan: Assessment and Plan VTE prophylaxis?: Chemical Plan of care discussed with patient/family: Yes - Patient Problems (1) Tylenol overdose Current Visit: Yes Status: Acute Plan to address problem: Admit the patient to the medical telemetry put the patient on cardiac diet. IV fluid D5 half-normal saline at the rate of 125 cc/h. Pepcid 20 mg IV every 12 hours. Patient is on Acetadote as per protocol. We will repeat that Tylenol l evel. We also check CBC CMP in the morning. Patient is seen and evaluated by psych. We also consult GI for precaution. We will repeat the LFT in the morning (2) Suicide attempt Current Visit: Yes Status: Acute Plan to address problem: We will continue the home psych medication. Patient is already seen and evaluated by psych. We continue 1013 and follow psych recommendation (3) Schizophrenia Current Visit: Yes Status: Acute Plan to address problem: We will continue the home psych medication. Patient is already seen and evaluated by psych. We continue 1013 and follow psych recommendation (4) Drug ingestion Current Visit: Yes Status: Acute Plan to address problem: put the patient on cardiac diet. IV fluid D5 half-normal saline at the rate of 125 cc/h. Pepcid 20 mg IV every 12 hours. Patient is on Acetadote as per protocol. We will repeat that Tylenol level. We also check CBC CMP in the mo rning. Patient is seen and evaluated by psych. We also consult GI for precaution. We will repeat the LFT in the morning (5) DVT prophylaxis Current Visit: Yes Status: Acute Plan to address problem: Heparin 5000 units subcu every 8 hours for DVT prophylaxis. Pepcid 20 mg IV every 12 hours for GI prophylaxis. Patient is a full code 09/03/20 Patient is doing better. Tylenol level is 5.0. Liver function test are normal. Continue current management. Recheck CMP in the morning. Discharge plan when cleared by GI. Patient already seen and evaluated by psych. Outpatient follow-up with psych. Discharge planning morning if okay with GI. 09/04/20 pt is expressing suicidal ideations yesterday evening. Patient has been writing out plans and and items to use for suicide attempt. Patient was being followed by mental health and had been taken off 1013. Nurse has also indicated that patient attempted to leave the floor.We will place patient on 1013 and will reconsult mental health for follow-up. Patient LFT is normal. Tylenol level is 5.2. Continue current management. Recheck CMP in the morning Discharge plan when cleared by GI and psych - Patient Problems (1) Tylenol overdose Current Visit: Yes Status: Acute (2) Suicide attempt Current Visit: Yes Status: Acute (3) Schizophrenia Current Visit: Yes Status: Acute (4) Drug ingestion Current Visit: Yes Status: Acute (5) DVT prophylaxis Current Visit: Yes Status: Acute History Interval history: Patient is seen and examined Patient chart labs and medications reviewed Patient is expressing suicidal ideations yesterday evening. Patient has been writing out plans and and items to use for suicide attempt. Patient was being followed by mental health and had been taken off 1013. Nurse has also indicated that patient attempted to leave the floor. Vitals are stable Hospitalist Physical - Constitutional Vitals: Temp Pulse Resp BP Pulse Ox 98.4 F 87 18 95/63 100 09/04/20 04:24 09/04/20 05:49 09/04/20 04:24 09/04/20 05:53 09/04/20 08:55 General appearance: Present: no acute distress, well-nourished - EENT Eyes: Present: PERRL, EOM intact ENT: hearing intact - Neck Neck: Present: supple, normal ROM - Respiratory Respiratory effort: normal Respiratory: bilateral: diminished - Cardiovascular Rhythm: regular Heart Sounds: Present: S1 & S2 - Extremities Extremities: no ischemia Peripheral Pulses: within normal limits - Abdominal General gastrointestinal: soft, non-tender, non-distended - Integumentary Integumentary: Present: warm, dry - Psychiatric Psychiatric: appropriate mood/affect - Neurologic Neurologic: CNII-XII intact, moves all extremities - Allied Health Allied health notes reviewed: nursing Results - Labs CBC & Chem 7: 09/03/20 06:54 09/04/20 00:12 Labs: Laboratory Last Values WBC 6.7 K/mm3 (4.5-11.0) 09/03/20 06:54 RBC 4.69 M/mm3 (3.65-5.03) 09/03/20 06:54 Hgb 12.7 gm/dl (10.1-14.3) 09/03/20 06:54 Hct 39.1 % (30.3-42.9) 09/03/20 06:54 MCV 83 fl (79-97) 09/03/20 06:54 MCH 27 pg (28-32) L 09/03/20 06:54 MCHC 33 % (30-34) 09/03/20 06:54 RDW 15.1 % (13.2-15.2) 09/03/20 06:54 Plt Count 275 K/mm3 (140-440) 09/03/20 06:54 Lymph % (Auto) Clinical Nurse Specialist 09/03/20 06:54 [place] % (Auto) 5.4 % (0.0-7.3) 09/01/20 21:20 Eos % (Auto) 0.6 % (0.0-4.3) 09/01/20 21:20 Baso % (Auto) 0.3 % (0.0-1.8) 09/01/20 21:20 Lymph # (Auto) 3.2 K/mm3 (1.2-5.4) 09/01/20 21:20 [place] # (Auto) 0.5 K/mm3 (0.0-0.8) 09/01/20 21:20 Eos # (Auto) 0.1 K/mm3 (0.0-0.4) 09/01/20 21:20 Baso # (Auto) 0.0 K/mm3 (0.0-0.1) 09/01/20 21:20 Add Manual Diff Complete 09/03/20 06:54 Total Counted 100 09/03/20 06:54 Seg Neutrophils % Clinical Nurse Specialist 09/03/20 06:54 Seg Neuts % (Manual) 35.0 % (40.0-70.0) L 09/03/20 06:54 Lymphocytes % (Manual) 62.0 % (13.4-35.0) H 09/03/20 06:54 Monocytes % (Manual) 3.0 % (0.0-7.3) 09/03/20 06:54 Nucleated RBC % Not Reportable 09/03/20 06:54 Seg Neutrophils # 5.6 K/mm3 (1.8-7.7) 09/01/20 21:20 Seg Neutrophils # Man 2.3 K/mm3 (1.8-7.7) 09/03/20 06:54 Band Neutrophils # 0.0 K/mm3 09/03/20 06:54 Lymphocytes # (Manual) 4.2 K/mm3 (1.2-5.4) 09/03/20 06:54 Abs React Lymphs (Man) 0.0 K/mm3 09/03/20 06:54 Monocytes # (Manual) 0.2 K/mm3 (0.0-0.8) 09/03/20 06:54 Eosinophils # (Manual) 0.0 K/mm3 (0.0-0.4) 09/03/20 06:54 Basophils # (Manual) 0.0 K/mm3 (0.0-0.1) 09/03/20 06:54 Metamyelocytes # 0.0 K/mm3 09/03/20 06:54 Myelocytes # 0.0 K/mm3 09/03/20 06:54 Promyelocytes # 0.0 K/mm3 09/03/20 06:54 Blast Cells # 0.0 K/mm3 09/03/20 06:54 WBC Morphology Not Reportable 09/03/20 06:54 Hypersegmented Neuts Not Reportable 09/03/20 06:54 Hyposegmented Neuts Not Reportable 09/03/20 06:54 Hypogranular Neuts Not Reportable 09/03/20 06:54 Smudge Cells Not Reportable 09/03/20 06:54 Toxic Granulation Not Reportable 09/03/20 06:54 Toxic Vacuolation Not Reportable 09/03/20 06:54 Dohle Bodies Not Reportable 09/03/20 06:54 Pelger-Huet Anomaly Not Reportable 09/03/20 06:54 Ginny Rods Not Reportable 09/03/20 06:54 Platelet Estimate Consistent w auto 09/03/20 06:54 Clumped Platelets Not Reportable 09/03/20 06:54 Plt Clumps, EDTA Not Reportable 09/03/20 06:54 Large Platelets Not Reportable 09/03/20 06:54 Giant Platelets Not Reportable 09/03/20 06:54 Platelet Satelliting Not Reportable 09/03/20 06:54 Plt Morphology Comment Not Reportable 09/03/20 06:54 RBC Morphology Normal 09/03/20 06:54 Dimorphic RBCs Not Reportable 09/03/20 06:54 Polychromasia Not Reportable 09/03/20 06:54 Hypochromasia Not Reportable 09/03/20 06:54 Poikilocytosis Not Reportable 09/03/20 06:54 Anisocytosis Not Reportable 09/03/20 06:54 Microcytosis Not Reportable 09/03/20 06:54 Macrocytosis Not Reportable 09/03/20 06:54 Spherocytes Not Reportable 09/03/20 06:54 Pappenheimer Bodies Not Reportable 09/03/20 06:54 Sickle Cells Not Reportable 09/03/20 06:54 Target Cells Not Reportable 09/03/20 06:54 Tear Drop Cells Not Reportable 09/03/20 06:54 Ovalocytes Not Reportable 09/03/20 06:54 Helmet Cells Not Reportable 09/03/20 06:54 Back-[place] Bodies Not Reportable 09/03/20 06:54 [place] Rings Not Reportable 09/03/20 06:54 [place] Cells Not Reportable 09/03/20 06:54 Bite Cells Not Reportable 09/03/20 06:54 Crenated Cell Not Reportable 09/03/20 06:54 Elliptocytes Not Reportable 09/03/20 06:54 Acanthocytes (Spur) Not Reportable 09/03/20 06:54 Rouleaux Not Reportable 09/03/20 06:54 Hemoglobin C Crystals Not Reportable 09/03/20 06:54 Schistocytes Not Reportable 09/03/20 06:54 Malaria parasites Not Reportable 09/03/20 06:54 Khadar Bodies Not Reportable 09/03/20 06:54 Hem Pathologist Commnt No 09/03/20 06:54 PT 15.3 Sec. (12.2-14.9) H 09/03/20 06:54 INR 1.23 (0.87-1.13) H 09/03/20 06:54 APTT 30.3 Sec. (24.2-36.6) 09/01/20 22:38 Sodium 138 mmol/L (137-145) 09/04/20 00:12 Potassium 3.5 mmol/L (3.6-5.0) L 09/04/20 00:12 Chloride 102.6 mmol/L (98-107) 09/04/20 00:12 Carbon Dioxide 27 mmol/L (22-30) 09/04/20 00:12 Anion Gap 12 mmol/L 09/04/20 00:12 BUN 6 mg/dL (7-17) L 09/04/20 00:12 Creatinine 0.7 mg/dL (0.6-1.2) 09/04/20 00:12 Estimated GFR > 60 ml/min 09/04/20 00:12 BUN/Creatinine Ratio 9 % 09/04/20 00:12 Glucose 114 mg/dL (65-100) H 09/04/20 00:12 Calcium 8.9 mg/dL (8.4-10.2) 09/04/20 00:12 Total Bilirubin 0.30 mg/dL (0.1-1.2) 09/04/20 00:12 AST 18 units/L (5-40) 09/04/20 00:12 ALT 17 units/L (7-56) 09/04/20 00:12 Alkaline Phosphatase 95 units/L (35-129) 09/04/20 00:12 Total Protein 7.2 g/dL (6.3-8.2) 09/04/20 00:12 Albumin 4.0 g/dL (3.9-5) 09/04/20 00:12 Albumin/Globulin Ratio 1.3 % 09/04/20 00:12 HCG, Qual Negative (Negative) 09/01/20 21:20 Urine Color Yellow (Yellow) 09/02/20 09:30 Urine Turbidity Clear (Clear) 09/02/20 09:30 Urine pH 5.0 (5.0-7.0) 09/02/20 09:30 Ur Specific [place] 1.042 (1.003-1.030) H 09/02/20 09:30 Urine Protein 30 mg/dl mg/dL (Negative) 09/02/20 09:30 Urine Glucose (UA) Neg mg/dL (Negative) 09/02/20 09:30 Urine Ketones 80 mg/dL (Negative) 09/02/20 09:30 Urine Blood Neg (Negative) 09/02/20 09:30 Urine Nitrite Neg (Negative) 09/02/20 09:30 Urine Bilirubin Neg (Negative) 09/02/20 09:30 Urine Urobilinogen < 2.0 mg/dL (<2.0) 09/02/20 09:30 Ur Leukocyte Esterase Neg (Negative) 09/02/20 09:30 Urine WBC (Auto) 2.0 /HPF (0.0-6.0) 09/02/20 09:30 Urine RBC (Auto) 2.0 /HPF (0.0-6.0) 09/02/20 09:30 U Epithel Cells (Auto) 10.0 /HPF (0-13.0) 09/02/20 09:30 Urine Mucus 1+ /HPF 09/02/20 09:30 Salicylates < 0.3 mg/dL (2.8-20.0) L 09/01/20 21:20 Urine Opiates Screen Negative 09/02/20 09:30 Urine Methadone Screen Negative 09/02/20 09:30 Acetaminophen 5.0 ug/mL (10.0-30.0) L 09/03/20 06:54 Ur Barbiturates Screen Negative 09/02/20 09:30 Ur Phencyclidine Scrn Negative 09/02/20 09:30 Ur Amphetamines Screen Negative 09/02/20 09:30 U Benzodiazepines Scrn Negative 09/02/20 09:30 Urine Cocaine Screen Negative 09/02/20 09:30 U Marijuana (THC) Screen Negative 09/02/20 09:30 Drugs of Abuse Note Disclamer 09/02/20 09:30 Plasma/Serum Alcohol < 0.01 % (0-0.07) 09/01/20 21:20 Coronavirus (PCR) Negative (Negative) 09/01/20 09:00 Hepatitis A IgM Ab Non-reactive (NonReactive) 09/03/20 06:54 Hep Bs Antigen Non-reactive (Negative) 09/03/20 06:54 Hep B Core IgM Ab Non-reactive (NonReactive) 09/03/20 06:54 Hepatitis C Antibody Non-reactive (NonReactive) 09/03/20 06:54 Ramos/IV: Voiding Method Toilet Active Medications - Current Medications Current Medications: Generic Name Dose Route Start Last Admin Trade Name Freq PRN Reason Stop Dose Admin Albuterol 2.5 mg 09/02/20 10:12 Albuterol 2.5 Mg/3 Ml Nebu IH Q4HRT PRN Shortness Of Breath Fluoxetine HCl 60 mg 09/03/20 22:00 09/04/20 00:55 Fluoxetine 10 Mg Tab PO Not Given QHS WAGNER Heparin Sodium (Porcine) 5,000 unit 09/02/20 14:00 09/04/20 05:38 Heparin 5,000 Unit/1 Ml Vial SUB-Q 5,000 unit Q8HR WAGNER Administration Hydroxyzine Pamoate 25 mg 09/03/20 22:00 09/03/20 21:36 Hydroxyzine Pamoate 25 Mg Cap PO 25 mg QHS WAGNER Administration Hydroxyzine Pamoate 25 mg 09/04/20 10:00 09/04/20 09:59 Hydroxyzine Pamoate 25 Mg Cap PO 25 mg QAM WAGNER Administration Dextrose/Sodium Chloride 1,000 mls @ 125 mls/hr 09/02/20 11:00 09/03/20 07:16 D5/0.45ns IV 125 mls/hr DIRECT WAGNER Administration Multivitamins 1 each 09/03/20 10:00 09/04/20 10:00 Multivitamins ,Therapeutic Tab PO 1 each QDAY WAGNER Administration Olanzapine 20 mg 09/03/20 22:00 09/03/20 21:35 Olanzapine 10 Mg Tab PO 20 mg QHS WAGNER Administration Ondansetron HCl 4 mg 09/02/20 10:12 09/02/20 23:09 Ondansetron 4 Mg/2 Ml Inj IV 4 mg Q8H PRN Administration Nausea And Vomiting Pantoprazole Sodium 40 mg 09/04/20 07:30 09/04/20 08:40 Pantoprazole 40 Mg Tab PO 40 mg QDAC WAGNER Administration Sodium Chloride 10 ml 09/02/20 22:00 09/04/20 10:04 Sodium Chloride 0.9% 10 Ml Flush Syringe IV 10 ml BID WAGNER Administration Sodium Chloride 10 ml 09/02/20 10:12 Sodium Chloride 0.9% 10 Ml Flush Syringe IV PRN PRN LINE FLUSH Ziprasidone 80 mg 09/03/20 22:00 09/03/20 21:34 Ziprasidone 40 Mg Cap PO 80 mg QHS WAGNER Administration Ziprasidone 60 mg 09/04/20 10:00 09/04/20 10:00 Ziprasidone 60 Mg Cap PO 60 mg QAM WAGNER Administration Nutrition/Malnutrition Assess - Dietary Evaluation Nutrition/Malnutrition Findings: Nutrition Notes Start: 09/03/20 11:21 Freq: Status: Active Protocol: Document 09/03/20 11:21 LORE (Rec: 09/03/20 11:31 LORE [email or web address]) Nutrition Notes Need for Assessment generated from: MD Order,stair builder,MST Initial or Follow up Assessment Other Pertinent Diagnosis suicide attempt, schizophrenia , tylenol overdose Current Diet Cardiac Labs/Tests Reviewed Pertinent Medications MVI D5 1/5 NS at 125 ml/hr Height 5 ft Weight 103.6 kg [place] Body Weight (kg) 45.45 BMI 44.6 Intake Prior to Admission Poor Weight Status Morbidly Obese Subjective/Other Information MD order for ONS, RN screen for MST. Pt unsure of UBW. She estimates a four pound wt loss in two weeks (not significant). Pt reports not eating well for 2 weeks TECHNICAL ARTIST due to N/V. Pt open to ONS. Pt ate a bite of breakfast. Burn Absent Trauma Absent GI Symptoms Nausea Current % PO Negligible Minimum of two criteria No Energy Intake (non-severe) <75% Estimated Energy Requirement >7 days #1 Nutrition Diagnosis Inadequate oral intake Etiology N/V As Evidenced by Signs and Symptoms pt reports not eating well TECHNICAL ARTIST , pt ate <25% of breakfast Is patient on ventilator? No Is Patient Ambulatory and/or Out of Bed Yes REE-([facility]-ambulatory/OOB) [ 2245.750 [id number]] Kcal/Kg value to use for calculation 16 Approximate Energy Requirements Using 1658 kcal/Kg Calculation Used for Recommendations Kcal/kg Additional Notes Protein: (0.8-1g/kg AdjBW: 75kg) 60-75g Fluid: 1 ml/kcal or per MD Nutrition Intervention Change Diet Order: Continue Add Supplement/Snack (indicate name/kcal Ensure Enlive BID /protein ) Provides kCal: 700 Provides Protein (gm) 40 Goal #1 Meet at least 75% of protein and energy needs via PO and ONS intakes Anticipated Discharge Needs: Regular Follow-Up By: 09/07/20 Additional Comments FU for intakes and ONS tolerance - Malnutrition Assessment Minimum of two criteria: No physical signs of malnutrition - Attestation Statement I have reviewed and agreed w/ Malnutrition eval & tx plan: Yes
--- NOTE | 2020-09-04 10:29 | Progress Note ---
Subjective - Reason for Consult Consult date: 09/04/20 Reason for consult: SI - Chief Complaint Chief complaint: The patient was seen today. She is lying in bed asleep but easily arouses. A sitter is at bedside. It is documented the patient gave the nurse a suicide note stating she wanted to . When asking the patient about the note and her feelings, she states "it's what I felt at the moment." She says "yea, I'm just tired" when asked if she still felt that way. She denies hallucinations. REVIEW OF SYSTEMS Constitutional: HAs, Negative for weight loss ENT: Negative for stridor Abdomen: Positve Nausae, vomit. Respiratory: Negative for cough or hemoptysis All other systems reviewed and are negative MENTAL STATUS EXAMINATION General Appearance and Behavior: Age appropriate, good hygiene, wearing appropriate clothes, good eye contact, cooperative polite with questioning. Cooperation: Participating/engaged Psychomotor Behavior: unremarkable and within normal limits Mood: Good Affect and affective range: congruent with mood Thought Process: Fluent/Logical, Thought Content: Within reality, Speech: Normal volume, Regular rate and rhythm, Intellectual Functioning: Average Suicidal Ideation: Yes Homicidal Ideation: Denies HI Impulse Control: Unimpaired Insight and Judgment: Normal insight and judgment, Memory: Normal, Attention: Normal, Orientation: Alert, oriented, Assessment and Plan (1) Depression Current Visit: Yes Status: Acute Qualifiers: Psychotic features: without psychotic features F32.9 Treatment Plan MEDICATIONS: restarted home meds by Dr. Salvador Risks, benefits and alternatives of medications discussed with the patient, ques tions answered and consent obtained from patient. PSYCHOTHERAPY: Supportive psychotherapy provided MEDICAL: Per primary team DELIRIUM PRECAUTIONS: Please re-orient patient frequently, keep lights on during the day, and minimize benzodiazepines and opiates as these medications could worsen patient's confusion. TELEGRAPH DISPATCHER: Defer to primary DISPOSITION: Recommend acute inpatient psychiatric hospitalization at this time. Case discussed with Dr. Salvador who agrees with current disposition LEGAl status: 1013 FOLLOW-UP: Will follow Thank you for the consult. Please contact with any questions and/or concerns. Mental Status Exam - Vital signs Last Vital Signs Temp 98.4 F 09/04/20 04:24 Pulse 87 09/04/20 05:49 Resp 18 09/04/20 04:24 BP 95/63 09/04/20 05:53 Pulse Ox 100 09/04/20 08:55
[2020-09-04] MEDS: ZIPRASIDONE 40 MG CAP PO SCH (23:35)
[2020-09-05] MEDS: HEPARIN 5,000 UNIT/1 ML VIAL SUB-Q SCH ×3 (05:27→21:53)
[2020-09-05 05:29] LABS: Alanine Aminotransferase 16 units/L (7-56); Albumin 3.5 g/dL (3.9-5); Blood Urea Nitrogen 10 mg/dL (7-17); Calcium 8.5 mg/dL (8.4-10.2); Hemolysis Index 6
[2020-09-05 05:30] LABS: BUN/Creatinine Ratio 14
[2020-09-05] MEDS: PANTOPRAZOLE 40 MG TAB PO SCH (08:15)
--- NOTE | 2020-09-05 09:51 | Progress Note ---
Assessment and Plan Assessment and plan: Assessment and Plan VTE prophylaxis?: Chemical Plan of care discussed with patient/family: Yes - Patient Problems (1) Tylenol overdose Current Visit: Yes Status: Acute Plan to address problem: Admit the patient to the medical telemetry put the patient on cardiac diet. IV fluid D5 half-normal saline at the rate of 125 cc/h. Pepcid 20 mg IV every 12 hours. Patient is on Acetadote as per protocol. We will repeat that Tylenol l evel. We also check CBC CMP in the morning. Patient is seen and evaluated by psych. We also consult GI for precaution. We will repeat the LFT in the morning (2) Suicide attempt Current Visit: Yes Status: Acute Plan to address problem: We will continue the home psych medication. Patient is already seen and evaluated by psych. We continue 1013 and follow psych recommendation (3) Schizophrenia Current Visit: Yes Status: Acute Plan to address problem: We will continue the home psych medication. Patient is already seen and evaluated by psych. We continue 1013 and follow psych recommendation (4) Drug ingestion Current Visit: Yes Status: Acute Plan to address problem: put the patient on cardiac diet. IV fluid D5 half-normal saline at the rate of 125 cc/h. Pepcid 20 mg IV every 12 hours. Patient is on Acetadote as per protocol. We will repeat that Tylenol level. We also check CBC CMP in the mo rning. Patient is seen and evaluated by psych. We also consult GI for precaution. We will repeat the LFT in the morning (5) DVT prophylaxis Current Visit: Yes Status: Acute Plan to address problem: Heparin 5000 units subcu every 8 hours for DVT prophylaxis. Pepcid 20 mg IV every 12 hours for GI prophylaxis. Patient is a full code 09/03/20 Patient is doing better. Tylenol level is 5.0. Liver function test are normal. Continue current management. Recheck CMP in the morning. Discharge plan when cleared by GI. Patient already seen and evaluated by psych. Outpatient follow-up with psych. Discharge planning morning if okay with GI. 09/04/20 pt is expressing suicidal ideations yesterday evening. Patient has been writing out plans and and items to use for suicide attempt. Patient was being followed by mental health and had been taken off 1013. Nurse has also indicated that patient attempted to leave the floor.We will place patient on 1013 and will reconsult mental health for follow-up. Patient LFT is normal. Tylenol level is 5.2. Continue current management. Recheck CMP in the morning Discharge plan when cleared by GI and psych pt is expressing suicidal ideations yesterday evening. Patient has been writing out plans and and items to use for suicide attempt. Patient was seen and evaluated by psych and patient is placed on 1013 . Patient LFT is normal. Tylenol level is 5.2. Continue current management. Recheck CMP in the morning Patient is waiting for inpatient psych placement - Patient Problems (1) Tylenol overdose Current Visit: Yes Status: Acute (2) Suicide attempt Current Visit: Yes Status: Acute (3) Schizophrenia Current Visit: Yes Status: Acute (4) Drug ingestion Current Visit: Yes Status: Acute (5) DVT prophylaxis Current Visit: Yes Status: Acute History Interval history: Patient is seen and examined Patient chart labs and medications reviewed Patient is doing okay Patient is expressing suicidal ideation. Patient has been writing out plans and and items to use for suicide attempt. Vitals are stable Hospitalist Physical - Constitutional Vitals: Temp Pulse Resp BP Pulse Ox 98.2 F 85 18 99/50 97 09/05/20 04:00 09/05/20 04:00 09/05/20 04:00 09/05/20 04:00 09/05/20 04:00 General appearance: Present: no acute distress, well-nourished - EENT Eyes: Present: PERRL, EOM intact ENT: hearing intact, clear oral mucosa - Neck Neck: Present: supple - Respiratory Respiratory: bilateral: CTA - Cardiovascular Rhythm: regular Heart Sounds: Present: S1 & S2 - Extremities Extremities: no ischemia Peripheral Pulses: within normal limits - Abdominal General gastrointestinal: soft, non-tender, non-distended, normal bowel sounds - Integumentary Integumentary: Present: warm, dry - Psychiatric Psychiatric: appropriate mood/affect, intact judgment & insight - Neurologic Neurologic: CNII-XII intact, moves all extremities Results - Labs CBC & Chem 7: 09/03/20 06:54 09/05/20 04:17 Labs: Laboratory Last Values WBC 6.7 K/mm3 (4.5-11.0) 09/03/20 06:54 RBC 4.69 M/mm3 (3.65-5.03) 09/03/20 06:54 Hgb 12.7 gm/dl (10.1-14.3) 09/03/20 06:54 Hct 39.1 % (30.3-42.9) 09/03/20 06:54 MCV 83 fl (79-97) 09/03/20 06:54 MCH 27 pg (28-32) L 09/03/20 06:54 MCHC 33 % (30-34) 09/03/20 06:54 RDW 15.1 % (13.2-15.2) 09/03/20 06:54 Plt Count 275 K/mm3 (140-440) 09/03/20 06:54 Lymph % (Auto) Documentation Spec 09/03/20 06:54 [place] % (Auto) 5.4 % (0.0-7.3) 09/01/20 21:20 Eos % (Auto) 0.6 % (0.0-4.3) 09/01/20 21:20 Baso % (Auto) 0.3 % (0.0-1.8) 09/01/20 21:20 Lymph # (Auto) 3.2 K/mm3 (1.2-5.4) 09/01/20 21:20 [place] # (Auto) 0.5 K/mm3 (0.0-0.8) 09/01/20 21:20 Eos # (Auto) 0.1 K/mm3 (0.0-0.4) 09/01/20 21:20 Baso # (Auto) 0.0 K/mm3 (0.0-0.1) 09/01/20 21:20 Add Manual Diff Complete 09/03/20 06:54 Total Counted 100 09/03/20 06:54 Seg Neutrophils % Documentation Spec 09/03/20 06:54 Seg Neuts % (Manual) 35.0 % (40.0-70.0) L 09/03/20 06:54 Lymphocytes % (Manual) 62.0 % (13.4-35.0) H 09/03/20 06:54 Monocytes % (Manual) 3.0 % (0.0-7.3) 09/03/20 06:54 Nucleated RBC % Not Reportable 09/03/20 06:54 Seg Neutrophils # 5.6 K/mm3 (1.8-7.7) 09/01/20 21:20 Seg Neutrophils # Man 2.3 K/mm3 (1.8-7.7) 09/03/20 06:54 Band Neutrophils # 0.0 K/mm3 09/03/20 06:54 Lymphocytes # (Manual) 4.2 K/mm3 (1.2-5.4) 09/03/20 06:54 Abs React Lymphs (Man) 0.0 K/mm3 09/03/20 06:54 Monocytes # (Manual) 0.2 K/mm3 (0.0-0.8) 09/03/20 06:54 Eosinophils # (Manual) 0.0 K/mm3 (0.0-0.4) 09/03/20 06:54 Basophils # (Manual) 0.0 K/mm3 (0.0-0.1) 09/03/20 06:54 Metamyelocytes # 0.0 K/mm3 09/03/20 06:54 Myelocytes # 0.0 K/mm3 09/03/20 06:54 Promyelocytes # 0.0 K/mm3 09/03/20 06:54 Blast Cells # 0.0 K/mm3 09/03/20 06:54 WBC Morphology Not Reportable 09/03/20 06:54 Hypersegmented Neuts Not Reportable 09/03/20 06:54 Hyposegmented Neuts Not Reportable 09/03/20 06:54 Hypogranular Neuts Not Reportable 09/03/20 06:54 Smudge Cells Not Reportable 09/03/20 06:54 Toxic Granulation Not Reportable 09/03/20 06:54 Toxic Vacuolation Not Reportable 09/03/20 06:54 Dohle Bodies Not Reportable 09/03/20 06:54 Pelger-Huet Anomaly Not Reportable 09/03/20 06:54 Ginny Rods Not Reportable 09/03/20 06:54 Platelet Estimate Consistent w auto 09/03/20 06:54 Clumped Platelets Not Reportable 09/03/20 06:54 Plt Clumps, EDTA Not Reportable 09/03/20 06:54 Large Platelets Not Reportable 09/03/20 06:54 Giant Platelets Not Reportable 09/03/20 06:54 Platelet Satelliting Not Reportable 09/03/20 06:54 Plt Morphology Comment Not Reportable 09/03/20 06:54 RBC Morphology Normal 09/03/20 06:54 Dimorphic RBCs Not Reportable 09/03/20 06:54 Polychromasia Not Reportable 09/03/20 06:54 Hypochromasia Not Reportable 09/03/20 06:54 Poikilocytosis Not Reportable 09/03/20 06:54 Anisocytosis Not Reportable 09/03/20 06:54 Microcytosis Not Reportable 09/03/20 06:54 Macrocytosis Not Reportable 09/03/20 06:54 Spherocytes Not Reportable 09/03/20 06:54 Pappenheimer Bodies Not Reportable 09/03/20 06:54 Sickle Cells Not Reportable 09/03/20 06:54 Target Cells Not Reportable 09/03/20 06:54 Tear Drop Cells Not Reportable 09/03/20 06:54 Ovalocytes Not Reportable 09/03/20 06:54 Helmet Cells Not Reportable 09/03/20 06:54 [place] Bodies Not Reportable 09/03/20 06:54 [place] Rings Not Reportable 09/03/20 06:54 Rufus Cells Not Reportable 09/03/20 06:54 Bite Cells Not Reportable 09/03/20 06:54 Crenated Cell Not Reportable 09/03/20 06:54 Elliptocytes Not Reportable 09/03/20 06:54 Acanthocytes (Spur) Not Reportable 09/03/20 06:54 Rouleaux Not Reportable 09/03/20 06:54 Hemoglobin C Crystals Not Reportable 09/03/20 06:54 Schistocytes Not Reportable 09/03/20 06:54 Malaria parasites Not Reportable 09/03/20 06:54 Khadar Bodies Not Reportable 09/03/20 06:54 Hem Pathologist Commnt No 09/03/20 06:54 PT 15.3 Sec. (12.2-14.9) H 09/03/20 06:54 INR 1.23 (0.87-1.13) H 09/03/20 06:54 APTT 30.3 Sec. (24.2-36.6) 09/01/20 22:38 Sodium 138 mmol/L (137-145) 09/05/20 04:17 Potassium 3.8 mmol/L (3.6-5.0) 09/05/20 04:17 Chloride 102.7 mmol/L (98-107) 09/05/20 04:17 Carbon Dioxide 26 mmol/L (22-30) 09/05/20 04:17 Anion Gap 13 mmol/L 09/05/20 04:17 BUN 10 mg/dL (7-17) 09/05/20 04:17 Creatinine 0.7 mg/dL (0.6-1.2) 09/05/20 04:17 Estimated GFR > 60 ml/min 09/05/20 04:17 BUN/Creatinine Ratio 14 % 09/05/20 04:17 Glucose 117 mg/dL (65-100) H 09/05/20 04:17 Calcium 8.5 mg/dL (8.4-10.2) 09/05/20 04:17 Total Bilirubin 0.20 mg/dL (0.1-1.2) 09/05/20 04:17 AST 16 units/L (5-40) 09/05/20 04:17 ALT 16 units/L (7-56) 09/05/20 04:17 Alkaline Phosphatase 96 units/L (35-129) 09/05/20 04:17 Total Protein 7.0 g/dL (6.3-8.2) 09/05/20 04:17 Albumin 3.5 g/dL (3.9-5) L 09/05/20 04:17 Albumin/Globulin Ratio 1.0 % 09/05/20 04:17 HCG, Qual Negative (Negative) 09/01/20 21:20 Urine Color Yellow (Yellow) 09/02/20 09:30 Urine Turbidity Clear (Clear) 09/02/20 09:30 Urine pH 5.0 (5.0-7.0) 09/02/20 09:30 Ur Specific [place] 1.042 (1.003-1.030) H 09/02/20 09:30 Urine Protein 30 mg/dl mg/dL (Negative) 09/02/20 09:30 Urine Glucose (UA) Neg mg/dL (Negative) 09/02/20 09:30 Urine Ketones 80 mg/dL (Negative) 09/02/20 09:30 Urine Blood Neg (Negative) 09/02/20 09:30 Urine Nitrite Neg (Negative) 09/02/20 09:30 Urine Bilirubin Neg (Negative) 09/02/20 09:30 Urine Urobilinogen < 2.0 mg/dL (<2.0) 09/02/20 09:30 Ur Leukocyte Esterase Neg (Negative) 09/02/20 09:30 Urine WBC (Auto) 2.0 /HPF (0.0-6.0) 09/02/20 09:30 Urine RBC (Auto) 2.0 /HPF (0.0-6.0) 09/02/20 09:30 U Epithel Cells (Auto) 10.0 /HPF (0-13.0) 09/02/20 09:30 Urine Mucus 1+ /HPF 09/02/20 09:30 Salicylates < 0.3 mg/dL (2.8-20.0) L 09/01/20 21:20 Urine Opiates Screen Negative 09/02/20 09:30 Urine Methadone Screen Negative 09/02/20 09:30 Acetaminophen 5.0 ug/mL (10.0-30.0) L 09/03/20 06:54 Ur Barbiturates Screen Negative 09/02/20 09:30 Ur Phencyclidine Scrn Negative 09/02/20 09:30 Ur Amphetamines Screen Negative 09/02/20 09:30 U Benzodiazepines Scrn Negative 09/02/20 09:30 Urine Cocaine Screen Negative 09/02/20 09:30 U Marijuana (THC) Screen Negative 09/02/20 09:30 Drugs of Abuse Note Disclamer 09/02/20 09:30 Plasma/Serum Alcohol < 0.01 % (0-0.07) 09/01/20 21:20 Coronavirus (PCR) Negative (Negative) 09/01/20 09:00 Hepatitis A IgM Ab Non-reactive (NonReactive) 09/03/20 06:54 Hep Bs Antigen Non-reactive (Negative) 09/03/20 06:54 Hep B Core IgM Ab Non-reactive (NonReactive) 09/03/20 06:54 Hepatitis C Antibody Non-reactive (NonReactive) 09/03/20 06:54 Ramos/IV: Voiding Method Toilet Active Medications - Current Medications Current Medications: Generic Name Dose Route Start Last Admin Trade Name Freq PRN Reason Stop Dose Admin Albuterol 2.5 mg 09/02/20 10:12 Albuterol 2.5 Mg/3 Ml Nebu IH Q4HRT PRN Shortness Of Breath Fluoxetine HCl 60 mg 09/03/20 22:00 09/04/20 23:34 Fluoxetine 10 Mg Tab PO 60 mg QHS WAGNER Administration Heparin Sodium (Porcine) 5,000 unit 09/02/20 14:00 09/05/20 05:27 Heparin 5,000 Unit/1 Ml Vial SUB-Q 5,000 unit Q8HR WAGNER Administration Hydroxyzine Pamoate 25 mg 09/03/20 22:00 09/04/20 23:37 Hydroxyzine Pamoate 25 Mg Cap PO 25 mg QHS WAGNER Administration Hydroxyzine Pamoate 25 mg 09/04/20 10:00 09/04/20 09:59 Hydroxyzine Pamoate 25 Mg Cap PO 25 mg QAM WAGNER Administration Dextrose/Sodium Chloride 1,000 mls @ 125 mls/hr 09/02/20 11:00 09/03/20 07:16 D5/0.45ns IV 125 mls/hr DIRECT WAGNER Administration Multivitamins 1 each 09/03/20 10:00 09/04/20 10:00 Multivitamins ,Therapeutic Tab PO 1 each QDAY WAGNER Administration Olanzapine 20 mg 09/03/20 22:00 09/04/20 23:35 Olanzapine 10 Mg Tab PO 20 mg QHS WAGNER Administration Ondansetron HCl 4 mg 09/02/20 10:12 09/02/20 23:09 Ondansetron 4 Mg/2 Ml Inj IV 4 mg Q8H PRN Administration Nausea And Vomiting Pantoprazole Sodium 40 mg 09/04/20 07:30 09/05/20 08:15 Pantoprazole 40 Mg Tab PO 40 mg QDAC WAGNER Administration Sodium Chloride 10 ml 09/02/20 22:00 09/04/20 23:34 Sodium Chloride 0.9% 10 Ml Flush Syringe IV 10 ml BID WAGNER Administration Sodium Chloride 10 ml 09/02/20 10:12 Sodium Chloride 0.9% 10 Ml Flush Syringe IV PRN PRN LINE FLUSH Ziprasidone 80 mg 09/03/20 22:00 09/04/20 23:35 Ziprasidone 40 Mg Cap PO 80 mg QHS WAGNER Administration Ziprasidone 60 mg 09/04/20 10:00 09/04/20 10:00 Ziprasidone 60 Mg Cap PO 60 mg QAM WAGNER Administration Nutrition/Malnutrition Assess - Dietary Evaluation Nutrition/Malnutrition Findings: Nutrition Notes Start: 09/03/20 11:21 Freq: Status: Active Protocol: Document 09/03/20 11:21 LORE (Rec: 09/03/20 11:31 [email or web address]) Nutrition Notes Need for Assessment generated from: MD Order,reinforcing [employer] re[employer],MST Initial or Follow up Assessment Other Pertinent Diagnosis suicide attempt, schizophrenia , tylenol overdose Current Diet Cardiac Labs/Tests Reviewed Pertinent Medications MVI D5 1/5 NS at 125 ml/hr Height 5 ft Weight 103.6 kg [place] Body Weight (kg) 45.45 BMI 44.6 Intake Prior to Admission Poor Weight Status Morbidly Obese Subjective/Other Information MD order for ONS, RN screen for MST. Pt unsure of UBW. She estimates a four pound wt loss in two weeks (not significant). 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 Pt open to ONS. Pt ate a bite of breakfast. 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 No Is Patient Ambulatory and/or Out of Bed Yes [facility] [ 2245.750 [id number]] Kcal/Kg value to use for calculation 16 Approximate Energy Requirements Using 1658 kcal/Kg Calculation Used for Recommendations Kcal/kg Additional Notes Protein: (0.8-1g/kg AdjBW: 75kg) 60-75g Fluid: 1 ml/kcal or per MD Nutrition Intervention Change Diet Order: Continue Add Supplement/Snack (indicate name/kcal Ensure Enlive BID /protein ) Provides kCal: 700 Provides Protein (gm) 40 Goal #1 Meet at least 75% of protein and energy needs via PO and ONS intakes Anticipated Discharge Needs: Regular Follow-Up By: 09/07/20 Additional Comments FU for intakes and ONS tolerance - Malnutrition Assessment Minimum of two criteria: No physical signs of malnutrition - Attestation Statement I have reviewed and agreed w/ Malnutrition eval & tx plan: Yes
[2020-09-05] MEDS: ZIPRASIDONE 60 MG CAP PO SCH (10:32)
[2020-09-05] MEDS: hydrOXYzine PAMOATE 25 MG CAP PO SCH ×2 (10:33→21:15)
[2020-09-05] MEDS: MULTIVITAMINS ,THERAPEUTIC TAB PO SCH (10:33)
[2020-09-05] MEDS: FLUoxetine 10 MG TAB PO SCH (21:13)
[2020-09-05] MEDS: ZIPRASIDONE 40 MG CAP PO SCH (21:14)
[2020-09-05] MEDS: ONDANSETRON 4 MG/2 ML INJ IV PRN (21:52)
[2020-09-06 05:54] LABS: Alanine Aminotransferase 15 units/L (7-56); Albumin 3.9 g/dL (3.9-5); Blood Urea Nitrogen 11 mg/dL (7-17); Calcium 8.7 mg/dL (8.4-10.2); Hemolysis Index 3
[2020-09-06 06:07] LABS: BUN/Creatinine Ratio 16
[2020-09-06] MEDS: PANTOPRAZOLE 40 MG TAB PO SCH (08:17)
--- NOTE | 2020-09-06 10:29 | Progress Note ---
Assessment and Plan Assessment and plan: Assessment and Plan VTE prophylaxis?: Chemical Plan of care discussed with patient/family: Yes - Patient Problems (1) Tylenol overdose Current Visit: Yes Status: Acute Plan to address problem: Admit the patient to the medical telemetry put the patient on cardiac diet. IV fluid D5 half-normal saline at the rate of 125 cc/h. Pepcid 20 mg IV every 12 hours. Patient is on Acetadote as per protocol. We will repeat that Tylenol l evel. We also check CBC CMP in the morning. Patient is seen and evaluated by psych. We also consult GI for precaution. We will repeat the LFT in the morning (2) Suicide attempt Current Visit: Yes Status: Acute Plan to address problem: We will continue the home psych medication. Patient is already seen and evaluated by psych. We continue 1013 and follow psych recommendation (3) Schizophrenia Current Visit: Yes Status: Acute Plan to address problem: We will continue the home psych medication. Patient is already seen and evaluated by psych. We continue 1013 and follow psych recommendation (4) Drug ingestion Current Visit: Yes Status: Acute Plan to address problem: put the patient on cardiac diet. IV fluid D5 half-normal saline at the rate of 125 cc/h. Pepcid 20 mg IV every 12 hours. Patient is on Acetadote as per protocol. We will repeat that Tylenol level. We also check CBC CMP in the mo rning. Patient is seen and evaluated by psych. We also consult GI for precaution. We will repeat the LFT in the morning (5) DVT prophylaxis Current Visit: Yes Status: Acute Plan to address problem: Heparin 5000 units subcu every 8 hours for DVT prophylaxis. Pepcid 20 mg IV every 12 hours for GI prophylaxis. Patient is a full code 09/03/20 Patient is doing better. Tylenol level is 5.0. Liver function test are normal. Continue current management. Recheck CMP in the morning. Discharge plan when cleared by GI. Patient already seen and evaluated by psych. Outpatient follow-up with psych. Discharge planning morning if okay with GI. 09/04/20 pt is expressing suicidal ideations yesterday evening. Patient has been writing out plans and and items to use for suicide attempt. Patient was being followed by mental health and had been taken off 1013. Nurse has also indicated that patient attempted to leave the floor.We will place patient on 1013 and will reconsult mental health for follow-up. Patient LFT is normal. Tylenol level is 5.2. Continue current management. Recheck CMP in the morning Discharge plan when cleared by GI and psych 09/05/20 pt is expressing suicidal ideations yesterday evening. Patient has been writing out plans and and items to use for suicide attempt. Patient was seen and evaluated by psych and patient is placed on 1013 . Patient LFT is normal. Tylenol level is 5.2. Continue current management. Recheck CMP in the morning Patient is waiting for inpatient psych placement 09/06/20 Patient is seen and examined. No nausea vomiting no abdominal pain. Patient LFTs normal AST 17 ALT 15 total bilirubin 0.20 and alkaline phosphatase 104. pt is expressing suicidal ideations yesterday evening. Patient has been writing out plans and and items to use for suicide attempt. Patient was seen and evaluated by psych and patient is placed on 1013 . Continue current management. Recheck CMP in the morning Patient is waiting for inpatient psych placement - Patient Problems (1) Tylenol overdose Current Visit: Yes Status: Acute (2) Suicide attempt Current Visit: Yes Status: Acute (3) Schizophrenia Current Visit: Yes Status: Acute (4) Drug ingestion Current Visit: Yes Status: Acute (5) DVT prophylaxis Current Visit: Yes Status: Acute History Interval history: Patient is seen and examined Patient chart labs and medications reviewed Patient is doing okay. No nausea vomiting no abdominal pain. Patient is expressing suicidal ideation. Patient has been writing out plans and and items to use for suicide attempt. Patient is waiting for inpatient psych placement Vitals are stable Hospitalist Physical - Constitutional Vitals: Temp Pulse Resp BP Pulse Ox 97.9 F 80 18 97/59 90 09/06/20 04:15 09/06/20 04:15 09/06/20 04:15 09/06/20 04:15 09/06/20 04:15 General appearance: Present: no acute distress, well-nourished - EENT Eyes: Present: PERRL, EOM intact ENT: hearing intact, clear oral mucosa - Neck Neck: Present: supple, normal ROM - Respiratory Respiratory effort: normal Respiratory: bilateral: CTA - Cardiovascular Rhythm: regular Heart Sounds: Present: S1 & S2 - Extremities Extremities: no ischemia Peripheral Pulses: within normal limits - Abdominal General gastrointestinal: soft, non-tender, non-distended, normal bowel sounds - Integumentary Integumentary: Present: clear, warm, dry - Psychiatric Psychiatric: appropriate mood/affect, other (Suicidal ideation) - Neurologic Neurologic: CNII-XII intact, moves all extremities Results - Labs CBC & Chem 7: 09/03/20 06:54 09/06/20 04:43 Labs: Laboratory Last Values WBC 6.7 K/mm3 (4.5-11.0) 09/03/20 06:54 RBC 4.69 M/mm3 (3.65-5.03) 09/03/20 06:54 Hgb 12.7 gm/dl (10.1-14.3) 09/03/20 06:54 Hct 39.1 % (30.3-42.9) 09/03/20 06:54 MCV 83 fl (79-97) 09/03/20 06:54 MCH 27 pg (28-32) L 09/03/20 06:54 MCHC 33 % (30-34) 09/03/20 06:54 RDW 15.1 % (13.2-15.2) 09/03/20 06:54 Plt Count 275 K/mm3 (140-440) 09/03/20 06:54 Lymph % (Auto) Clinic Manager 09/03/20 06:54 Holmes % (Auto) 5.4 % (0.0-7.3) 09/01/20 21:20 Eos % (Auto) 0.6 % (0.0-4.3) 09/01/20 21:20 Baso % (Auto) 0.3 % (0.0-1.8) 09/01/20 21:20 Lymph # (Auto) 3.2 K/mm3 (1.2-5.4) 09/01/20 21:20 Holmes # (Auto) 0.5 K/mm3 (0.0-0.8) 09/01/20 21:20 Eos # (Auto) 0.1 K/mm3 (0.0-0.4) 09/01/20 21:20 Baso # (Auto) 0.0 K/mm3 (0.0-0.1) 09/01/20 21:20 Add Manual Diff Complete 09/03/20 06:54 Total Counted 100 09/03/20 06:54 Seg Neutrophils % Clinic Manager 09/03/20 06:54 Seg Neuts % (Manual) 35.0 % (40.0-70.0) L 09/03/20 06:54 Lymphocytes % (Manual) 62.0 % (13.4-35.0) H 09/03/20 06:54 Monocytes % (Manual) 3.0 % (0.0-7.3) 09/03/20 06:54 Nucleated RBC % Not Reportable 09/03/20 06:54 Seg Neutrophils # 5.6 K/mm3 (1.8-7.7) 09/01/20 21:20 Seg Neutrophils # Man 2.3 K/mm3 (1.8-7.7) 09/03/20 06:54 Band Neutrophils # 0.0 K/mm3 09/03/20 06:54 Lymphocytes # (Manual) 4.2 K/mm3 (1.2-5.4) 09/03/20 06:54 Abs React Lymphs (Man) 0.0 K/mm3 09/03/20 06:54 Monocytes # (Manual) 0.2 K/mm3 (0.0-0.8) 09/03/20 06:54 Eosinophils # (Manual) 0.0 K/mm3 (0.0-0.4) 09/03/20 06:54 Basophils # (Manual) 0.0 K/mm3 (0.0-0.1) 09/03/20 06:54 Metamyelocytes # 0.0 K/mm3 09/03/20 06:54 Myelocytes # 0.0 K/mm3 09/03/20 06:54 Promyelocytes # 0.0 K/mm3 09/03/20 06:54 Blast Cells # 0.0 K/mm3 09/03/20 06:54 WBC Morphology Not Reportable 09/03/20 06:54 Hypersegmented Neuts Not Reportable 09/03/20 06:54 Hyposegmented Neuts Not Reportable 09/03/20 06:54 Hypogranular Neuts Not Reportable 09/03/20 06:54 Smudge Cells Not Reportable 09/03/20 06:54 Toxic Granulation Not Reportable 09/03/20 06:54 Toxic Vacuolation Not Reportable 09/03/20 06:54 Dohle Bodies Not Reportable 09/03/20 06:54 Pelger-Huet Anomaly Not Reportable 09/03/20 06:54 Ginny Rods Not Reportable 09/03/20 06:54 Platelet Estimate Consistent w auto 09/03/20 06:54 Clumped Platelets Not Reportable 09/03/20 06:54 Plt Clumps, EDTA Not Reportable 09/03/20 06:54 Large Platelets Not Reportable 09/03/20 06:54 Giant Platelets Not Reportable 09/03/20 06:54 Platelet Satelliting Not Reportable 09/03/20 06:54 Plt Morphology Comment Not Reportable 09/03/20 06:54 RBC Morphology Normal 09/03/20 06:54 Dimorphic RBCs Not Reportable 09/03/20 06:54 Polychromasia Not Reportable 09/03/20 06:54 Hypochromasia Not Reportable 09/03/20 06:54 Poikilocytosis Not Reportable 09/03/20 06:54 Anisocytosis Not Reportable 09/03/20 06:54 Microcytosis Not Reportable 09/03/20 06:54 Macrocytosis Not Reportable 09/03/20 06:54 Spherocytes Not Reportable 09/03/20 06:54 Pappenheimer Bodies Not Reportable 09/03/20 06:54 Sickle Cells Not Reportable 09/03/20 06:54 Target Cells Not Reportable 09/03/20 06:54 Tear Drop Cells Not Reportable 09/03/20 06:54 Ovalocytes Not Reportable 09/03/20 06:54 Helmet Cells Not Reportable 09/03/20 06:54 [place] Bodies Not Reportable 09/03/20 06:54 [place] Rings Not Reportable 09/03/20 06:54 [place] Cells Not Reportable 09/03/20 06:54 Bite Cells Not Reportable 09/03/20 06:54 Crenated Cell Not Reportable 09/03/20 06:54 Elliptocytes Not Reportable 09/03/20 06:54 Acanthocytes (Spur) Not Reportable 09/03/20 06:54 Rouleaux Not Reportable 09/03/20 06:54 Hemoglobin C Crystals Not Reportable 09/03/20 06:54 Schistocytes Not Reportable 09/03/20 06:54 Malaria parasites Not Reportable 09/03/20 06:54 Khadar Bodies Not Reportable 09/03/20 06:54 Hem Pathologist Commnt No 09/03/20 06:54 PT 15.3 Sec. (12.2-14.9) H 09/03/20 06:54 INR 1.23 (0.87-1.13) H 09/03/20 06:54 APTT 30.3 Sec. (24.2-36.6) 09/01/20 22:38 Sodium 137 mmol/L (137-145) 09/06/20 04:43 Potassium 3.8 mmol/L (3.6-5.0) 09/06/20 04:43 Chloride 98.9 mmol/L (98-107) 09/06/20 04:43 Carbon Dioxide 27 mmol/L (22-30) 09/06/20 04:43 Anion Gap 15 mmol/L 09/06/20 04:43 BUN 11 mg/dL (7-17) 09/06/20 04:43 Creatinine 0.7 mg/dL (0.6-1.2) 09/06/20 04:43 Estimated GFR > 60 ml/min 09/06/20 04:43 BUN/Creatinine Ratio 16 % 09/06/20 04:43 Glucose 146 mg/dL (65-100) H 09/06/20 04:43 Calcium 8.7 mg/dL (8.4-10.2) 09/06/20 04:43 Total Bilirubin 0.20 mg/dL (0.1-1.2) 09/06/20 04:43 AST 17 units/L (5-40) 09/06/20 04:43 ALT 15 units/L (7-56) 09/06/20 04:43 Alkaline Phosphatase 104 units/L (35-129) 09/06/20 04:43 Total Protein 7.0 g/dL (6.3-8.2) 09/06/20 04:43 Albumin 3.9 g/dL (3.9-5) 09/06/20 04:43 Albumin/Globulin Ratio 1.3 % 09/06/20 04:43 HCG, Qual Negative (Negative) 09/01/20 21:20 Urine Color Yellow (Yellow) 09/02/20 09:30 Urine Turbidity Clear (Clear) 09/02/20 09:30 Urine pH 5.0 (5.0-7.0) 09/02/20 09:30 Ur Specific [place] 1.042 (1.003-1.030) H 09/02/20 09:30 Urine Protein 30 mg/dl mg/dL (Negative) 09/02/20 09:30 Urine Glucose (UA) Neg mg/dL (Negative) 09/02/20 09:30 Urine Ketones 80 mg/dL (Negative) 09/02/20 09:30 Urine Blood Neg (Negative) 09/02/20 09:30 Urine Nitrite Neg (Negative) 09/02/20 09:30 Urine Bilirubin Neg (Negative) 09/02/20 09:30 Urine Urobilinogen < 2.0 mg/dL (<2.0) 09/02/20 09:30 Ur Leukocyte Esterase Neg (Negative) 09/02/20 09:30 Urine WBC (Auto) 2.0 /HPF (0.0-6.0) 09/02/20 09:30 Urine RBC (Auto) 2.0 /HPF (0.0-6.0) 09/02/20 09:30 U Epithel Cells (Auto) 10.0 /HPF (0-13.0) 09/02/20 09:30 Urine Mucus 1+ /HPF 09/02/20 09:30 Salicylates < 0.3 mg/dL (2.8-20.0) L 09/01/20 21:20 Urine Opiates Screen Negative 09/02/20 09:30 Urine Methadone Screen Negative 09/02/20 09:30 Acetaminophen 5.0 ug/mL (10.0-30.0) L 09/03/20 06:54 Ur Barbiturates Screen Negative 09/02/20 09:30 Ur Phencyclidine Scrn Negative 09/02/20 09:30 Ur Amphetamines Screen Negative 09/02/20 09:30 U Benzodiazepines Scrn Negative 09/02/20 09:30 Urine Cocaine Screen Negative 09/02/20 09:30 U Marijuana (THC) Screen Negative 09/02/20 09:30 Drugs of Abuse Note Disclamer 09/02/20 09:30 Plasma/Serum Alcohol < 0.01 % (0-0.07) 09/01/20 21:20 Coronavirus (PCR) Negative (Negative) 09/01/20 09:00 Hepatitis A IgM Ab Non-reactive (NonReactive) 05/07/21 06:54 Hep Bs Antigen Non-reactive (Negative) 09/03/20 06:54 Hep B Core IgM Ab Non-reactive (NonReactive) 09/03/20 06:54 Hepatitis C Antibody Non-reactive (NonReactive) 09/03/20 06:54 Ramos/IV: Voiding Method Toilet Active Medications - Current Medications Current Medications: Generic Name Dose Route Start Last Admin Trade Name Freq PRN Reason Stop Dose Admin Albuterol 2.5 mg 09/02/20 10:12 Albuterol 2.5 Mg/3 Ml Nebu IH Q4HRT PRN Shortness Of Breath Fluoxetine HCl 60 mg 09/03/20 22:00 09/05/20 21:13 Fluoxetine 10 Mg Tab PO 60 mg QHS WAGNER Administration Heparin Sodium (Porcine) 5,000 unit 09/02/20 14:00 09/05/20 21:53 Heparin 5,000 Unit/1 Ml Vial SUB-Q 5,000 unit Q8HR WAGNER Administration Hydroxyzine Pamoate 25 mg 09/03/20 22:00 09/05/20 21:15 Hydroxyzine Pamoate 25 Mg Cap PO 25 mg QHS WAGNER Administration Hydroxyzine Pamoate 25 mg 09/04/20 10:00 09/05/20 10:33 Hydroxyzine Pamoate 25 Mg Cap PO 25 mg QAM WAGNER Administration Dextrose/Sodium Chloride 1,000 mls @ 125 mls/hr 09/02/20 11:00 09/03/20 07:16 D5/0.45ns IV 125 mls/hr DIRECT WAGNER Administration Multivitamins 1 each 09/03/20 10:00 09/05/20 10:33 Multivitamins ,Therapeutic Tab PO 1 each QDAY WAGNER Administration Olanzapine 20 mg 09/03/20 22:00 09/05/20 21:26 Olanzapine 10 Mg Tab PO 20 mg QHS WAGNER Administration Ondansetron HCl 4 mg 09/02/20 10:12 09/02/20 23:09 Ondansetron 4 Mg/2 Ml Inj IV 4 mg Q8H PRN Administration Nausea And Vomiting Pantoprazole Sodium 40 mg 09/04/20 07:30 09/06/20 08:17 Pantoprazole 40 Mg Tab PO 40 mg QDAC WAGNER Administration Sodium Chloride 10 ml 09/02/20 22:00 09/05/20 21:18 Sodium Chloride 0.9% 10 Ml Flush Syringe IV 10 ml BID WAGNER Administration Sodium Chloride 10 ml 09/02/20 10:12 Sodium Chloride 0.9% 10 Ml Flush Syringe IV PRN PRN LINE FLUSH Ziprasidone 80 mg 09/03/20 22:00 09/05/20 21:14 Ziprasidone 40 Mg Cap PO 80 mg QHS WAGNER Administration Ziprasidone 60 mg 09/04/20 10:00 09/05/20 10:32 Ziprasidone 60 Mg Cap PO 60 mg QAM WAGNER Administration Nutrition/Malnutrition Assess - Dietary Evaluation Nutrition/Malnutrition Findings: Nutrition Notes Start: 09/03/20 11:21 Freq: Status: Active Protocol: Document 09/03/20 11:21 LORE (Rec: 09/03/20 11:31 [id number]) Nutrition Notes Need for Assessment generated from: MD Order,supervisor diagnostic,MST Initial or Follow up Assessment Other Pertinent Diagnosis suicide attempt, schizophrenia , tylenol overdose Current Diet Cardiac Labs/Tests Reviewed Pertinent Medications MVI D5 1/5 NS at 125 ml/hr Height 5 ft Weight 103.6 kg [place] Body Weight (kg) 45.45 BMI 44.6 Intake Prior to Admission Poor Weight Status Morbidly Obese Subjective/Other Information MD order for ONS, RN screen for MST. Pt unsure of UBW. She estimates a four pound wt loss in two weeks (not significant). 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 Pt open to ONS. Pt ate a bite of breakfast. 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 No Is Patient Ambulatory and/or Out of Bed Yes REE-([place] or-ambulatory/OOB) [ 5127.750 [id number]] Kcal/Kg value to use for calculation 16 Approximate Energy Requirements Using 1658 kcal/Kg Calculation Used for Recommendations Kcal/kg Additional Notes Protein: (0.8-1g/kg AdjBW: 75kg) 60-75g Fluid: 1 ml/kcal or per MD Nutrition Intervention Change Diet Order: Continue Add Supplement/Snack (indicate name/kcal Ensure Enlive BID /protein ) Provides kCal: 700 Provides Protein (gm) 40 Goal #1 Meet at least 75% of protein and energy needs via PO and ONS intakes Anticipated Discharge Needs: Regular Follow-Up By: 09/07/20 Additional Comments FU for intakes and ONS tolerance - Malnutrition Assessment Minimum of two criteria: No physical signs of malnutrition - Attestation Statement I have reviewed and agreed w/ Malnutrition eval & tx plan: Yes
[2020-09-06] MEDS: MULTIVITAMINS ,THERAPEUTIC TAB PO SCH (10:52)
[2020-09-06] MEDS: hydrOXYzine PAMOATE 25 MG CAP PO SCH (10:52)
[2020-09-06] MEDS: ZIPRASIDONE 60 MG CAP PO SCH (10:52)
--- NOTE | 2020-09-06 11:58 | Progress Note ---
Subjective - Reason for Consult Consult date: 09/06/20 Reason for consult: SI - Chief Complaint Chief complaint: The patient was seen today. She is lying in bed asleep but easily arouses. A sitter is at bedside. The patient is calm and cooperative. The patient reports feeling better, stating she felt calm. She says she "gets like that when she's off her medications for a few days." She was speaking of the incident where she gave a nurse a suicide note. The patient is denying SI/HI or any thoughts of dying. She also denies hallucinations of any kind. The patient states she had all her medications at home. Informed the patient that psych would be signing off for her to leave once medically clear. The patient verbalized understanding and agreement. REVIEW OF SYSTEMS Constitutional: HAs, Negative for weight loss ENT: Negative for stridor Abdomen: Positve Nausae, vomit. Respiratory: Negative for cough or hemoptysis All other systems reviewed and are negative MENTAL STATUS EXAMINATION General Appearance and Behavior: Age appropriate, good hygiene, wearing appropriate clothes, good eye contact, cooperative polite with questioning. Cooperation: Participating/engaged Psychomotor Behavior: unremarkable and within normal limits Mood: Good Affect and affective range: congruent with mood Thought Process: Fluent/Logical, Thought Content: Within reality, Speech: Normal volume, Regular rate and rhythm, Intellectual Functioning: Average Suicidal Ideation: Yes Homicidal Ideation: Denies HI Impulse Control: Unimpaired Insight and Judgment: Normal insight and judgment, Memory: Normal, Attention: Normal, Orientation: Alert, oriented, Assessment and Plan (1) Depression Current Visit: Yes Status: Acute Qualifiers: Psychotic features: without psychotic features F32.9 Treatment Plan Continue home meds as previously prescribed. Risks, benefits and alternatives of medications discussed with the patient, questions answered and consent obtained from patient. PSYCHOTHERAPY: Supportive psychotherapy provided MEDICAL: Per primary team DELIRIUM PRECAUTIONS: Please re-orient patient frequently, keep lights on during the day, and minimize benzodiazepines and opiates as these medications could worsen patient's confusion. 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 The patient understands that if suicidal thoughts return she is o seek immediate assistance. Case discussed with Dr. Salvador who agrees with current disposition The patient is to follow up with psych in 7 to 14 days upon discharge The inspector purchased parts to further discuss safety plan. FOLLOW-UP: Will sign off. Thank you for the consult. Please contact with any questions and/or concerns. Mental Status Exam - Vital signs Last Vital Signs Temp 97.9 F 09/06/20 04:15 Pulse 80 09/06/20 04:15 Resp 18 09/06/20 04:15 BP 97/59 09/06/20 04:15 Pulse Ox 90 09/06/20 04:15
[2020-09-06 12:39] VITALS: BP 115/59
--- NOTE | 2020-09-06 14:59 | Discharge Summary ---
Providers - Providers Date of Admission: 09/02/20 13:55 Date of discharge: 09/06/20 Attending physician: MAY ERNST MD 09/01/20 21:14 Consult to Mental Health [CONS] Stat Reason For Exam: drug overdose/SI/HI 09/02/20 Consult to Case Management [CONS] Routine Services Needed at Discharge: Tile Picker Notified:: cm 09/02/20 10:15 Consult to Physician [CONS] Routine Comment: Consulting Provider: HAKEEM BHATTI Physician Instructions: Reason For Exam: Tylenol overdose 09/03/20 22:39 Consult to Mental Health [CONS] Urgent Reason For Exam: Suicidal ideations/attempt Primary care physician: ARCHEOLOGIST CLASSICAL Hospitalization Reason for admission: Tylenol overdose resolved. Suicidal ideation resolved Condition: Stable Hospital course: Chief complaint: Tylenol overdose suicidal attempt History of present illness: 19 years old female with history of schizophrenia was brought to the emergency room by EMS after taking 3 handfuls of Tylenol. Patient states able to 500 mg tablets. The Tylenol was taken around 8 PM and was witnessed by her roommate. Patient states that she has a history of schizophrenia with suicide attempts in the past with the last one being 2 weeks ago. She says she has a self-harm who likes to cut her wrists. She states today voices were telling her to hurt himself and others by slicing her throat. She states this overwhelmed her so she ran to the home to grab a sharp item to slice her self but she cannot find it so instead she took the Tylenol. In the emergency room patient Tylenol level is 81.2 Past History Past Medical History: other (Schizophrenia) Assessment and Plan Assessment and plan: Assessment and Plan VTE prophylaxis?: Chemical Plan of care discussed with patient/family: Yes - Patient Problems (1) Tylenol overdose Current Visit: Yes Status: Acute Plan to address problem: Admit the patient to the medical telemetry put the patient on cardiac diet. IV fluid D5 half-normal saline at the rate of 125 cc/h. Pepcid 20 mg IV every 12 hours. Patient is on Acetadote as per protocol. We will repeat that Tylenol level. We also check CBC CMP in the morning. Patient is seen and evaluated by psych. We also consult GI for precaution. We will repeat the LFT in the morning (2) Suicide attempt Current Visit: Yes Status: Acute Plan to address problem: We will continue the home psych medication. Patient is already seen and evaluated by psych. We continue 1013 and follow psych recommendation (3) Schizophrenia Current Visit: Yes Status: Acute Plan to address problem: We will continue the home psych medication. Patient is already seen and evaluated by psych. We continue 1013 and follow psych recommendation (4) Drug ingestion Current Visit: Yes Status: Acute Plan to address problem: put the patient on cardiac diet. IV fluid D5 half-normal saline at the rate of 125 cc/h. Pepcid 20 mg IV every 12 hours. Patient is on Acetadote as per protocol. We will repeat that Tylenol level. We also check CBC CMP in the morning. Patient is seen and evaluated by psych. We also consult GI for precaution. We will repeat the LFT in the morning (5) DVT prophylaxis Current Visit: Yes Status: Acute Plan to address problem: Heparin 5000 units subcu every 8 hours for DVT prophylaxis. Pepcid 20 mg IV every 12 hours for GI prophylaxis. Patient is a full code 09/03/20 Patient is doing better. Tylenol level is 5.0. Liver function test are normal. Continue current management. Recheck CMP in the morning. Discharge plan when cleared by GI. Patient already seen and evaluated by psych. Outpatient follow-up with psych. Discharge planning morning if okay with GI. 09/04/20 pt is expressing suicidal ideations yesterday evening. Patient has been writing out plans and and items to use for suicide attempt. Patient was being followed by mental health and had been taken off 1013. Nurse has also indicated that patient attempted to leave the floor.We will place patient on 1013 and will reconsult mental health for follow-up. Patient LFT is normal. Tylenol level is 5.2. Continue current management. Recheck CMP in the morning Discharge plan when cleared by GI and psych 09/05/20 pt is expressing suicidal ideations yesterday evening. Patient has been writing out plans and and items to use for suicide attempt. Patient was seen and evaluated by psych and patient is placed on 1013 . Patient LFT is normal. Tylenol level is 5.2. Continue current management. Recheck CMP in the morning Patient is waiting for inpatient psych placement 09/06/20 Patient is seen and examined. No nausea vomiting no abdominal pain. Patient LFTs normal AST 17 ALT 15 total bilirubin 0.20 and alkaline phosphatase 104. pt is expressing suicidal ideations yesterday evening. Patient has been writing out plans and and items to use for suicide attempt. Patient was seen and evaluated by psych and patient is placed on 1013 . Continue current management. Recheck CMP in the morning Patient is waiting for inpatient psych placement Disposition: DC-01 TO HOME OR SELFCARE Final Discharge Diagnosis (Prints w/discharge instructions): Tylenol overdose resolved. Suicidal ideation resolved as per psych Time spent for discharge: 30 - Discharge Diagnoses (1) Tylenol overdose Status: Acute (2) Suicide attempt Status: Acute (3) Schizophrenia Status: Acute (4) Drug ingestion Status: Acute (5) DVT prophylaxis Status: Acute Core Measure Documentation - Palliative Care Palliative Care/ Comfort Measures: Not Applicable - Core Measures Any of the following diagnoses?: none Exam - Constitutional Vitals: Temp Pulse Resp BP Pulse Ox 97.9 F 108 H 14 115/59 98 09/06/20 12:37 09/06/20 12:37 09/06/20 12:37 09/06/20 12:37 09/06/20 12:37 General appearance: Present: no acute distress, well-nourished - EENT Eyes: Present: PERRL ENT: hearing intact, clear oral mucosa - Neck Neck: Present: supple, normal ROM - Respiratory Respiratory effort: normal Respiratory: bilateral: CTA - Cardiovascular Heart Sounds: Present: S1 & S2. Absent: rub, click - Extremities Extremities: pulses symmetrical, No edema Peripheral Pulses: within normal limits - Abdominal General gastrointestinal: Present: soft, non-tender, non-distended, normal bowel sounds Female genitourinary: Present: normal - Integumentary Integumentary: Present: clear, warm, dry - Musculoskeletal Musculoskeletal: gait normal, strength equal bilaterally - Psychiatric Psychiatric: appropriate mood/affect, intact judgment & insight - Neurologic Neurologic: CNII-XII intact, moves all extremities Plan Activity: no restrictions Diet: regular Follow up with: PRIMARY CARE, [Primary Care Provider] - 3-5 Days Prescriptions: Ziprasidone [Geodon] 80 mg PO QHS 30 Days capsule FLUoxetine [PROzac] 60 mg PO QHS 30 Days tablet OLANzapine [Zyprexa] 20 mg PO QHS 30 Days tablet Ziprasidone [Geodon] 60 mg PO QAM 30 Days capsule Pantoprazole [Protonix TAB] 40 mg PO QDAC 30 Days tablet
== END 2020-09-06 16:30 | disposition home or self-care (01) | DRG 918 ==
LOC: EEVIPCON 20:47 → ED 20:47 → 3A 09-02 07:24 → OBSVTOIN 09-02 13:55 → 3A 09-02 18:11
PROVIDERS: ADMIT Hospitalist; ATTEND Hospitalist
DX: T39.1X2A Poisoning by 4-Aminophenol derivatives, intentional self-harm, initial encounter (principal); F20.9 Schizophrenia, unspecified; R45.851 Suicidal ideations; F32.9 Major depressive disorder, single episode, unspecified; Z79.899 Other long term (current) drug therapy; Y92.89 Other specified places as the place of occurrence of the external cause; Z20.822 Contact with and (suspected) exposure to COVID-19
CPT/HCPCS: 36415; 80053; 80074; 80307; 80320; 81001; 84703; 85007; 85025; 85610; 85730; 93005; 94640; 96365; 96375; 96376; G0378; C9113; G0480; J0132; J1644; J2405; J3486; J7060; J7070; Q0177; U0003

== ENCOUNTER 2020-11-22 08:53 | Outpatient (CLI) | payer MEDICAID ==
--- NOTE | 2020-11-22 12:01 | Nuclear Medicine Report ---
NUCLEAR MEDICINE HEPATOBILIARY SCAN INDICATION / CLINICAL INFORMATION: CALCULUS OF GALLBLADDER. TECHNIQUE: Radiotracer: Tc-99m mebrofenin (by IV): 5.1 mCi. Gallbladder Stimulant: Ensure (8 ounces by mouth) COMPARISON: CT abdomen 06/30/2020 FINDINGS: HEPATIC ACTIVITY: Normal. BILIARY ACTIVITY: Normal. Common bile duct activity at 30 minutes. GALLBLADDER ACTIVITY: Normal at 15 minutes. SMALL BOWEL ACTIVITY: Normal at 30 minutes. GALLBLADDER EJECTION FRACTION % (if calculated): 47 - Normal at 30 min with Cholecystokinin: >35% - Normal at 60 min with Ensure/Glucerna: >33% PATIENT SYMPTOM REPRODUCTION: No symptoms reported.. IMPRESSION: 1. Biliary obstruction: None. 2. Gallbladder ejection fraction: Normal. Signer Name: Jose Tran MD Signed: 11/22/2020 11:57 AM Workstation Name: [id number]
== END 2020-11-22 08:54 | disposition home or self-care (01) ==
LOC: NM 08:53
PROVIDERS: ATTEND Internal Medicine Gastroenterology
DX: K80.20 Calculus of gallbladder without cholecystitis without obstruction (principal)
CPT/HCPCS: 78226; A9537